=== PATIENT | female | born 1990 | race Caucasian/White ===

== ENCOUNTER 2020-05-21 11:10 | Emergency (ER) | payer SELFPAY ==
--- OUTSIDE RECORDS SUMMARY | 2020-05-21 12:52 | XMS REPORT | Encounter Summary ---
:1990 Author Reason for Visit Well woman exam Instructions 1. Gynecologic examination CT + NG DNA, PCR, cervical urinalysis, dipstick pap, LB + reflex to HR HPV if [facility] 2. Oral contraception Sprintec (28) 0.25 mg-35 m cg tablet 3. Generalized anxiety disorder citalopram 10 mg tablet 4. Bacterial disease screening wet [place], vaginal Discussion Note Pap, GC/CT done. Counseled regardin g prevention of STD's and discussed contraceptive options. Advised avoidance of tobacco, alcohol, and drugs . Encouraged good nutrition, regular exercise, and id eal body weight. Patient educational handouts: No information available. Plan of Care Reminders Provider Appointments Follow up Phu Arias MD 06/19/2020 11:00AM Lab [place], In-Thom se Results Vaginal 05/18/2020 CT + NG DNA, [facility], Cervical [facility]/18/[facility] Urinalysis, In-Ho use Results Dipstick 05/18/2020 Pap, LB + [facility] (Lab) Reflex to hr HPV If 05/18/2020 [facility] Referral None recorded. Procedures None recorded. Surgeries None recorded. Imaging None recorded. Medications Name Start Date citalopram 10 mg tablet Take 1 tablet every day by oral route. Sprintec (28) 0.25 mg-35 mcg tablet Take 1 tablet every day by oral route. Medications Administered None recorded. Vitals Height Weight BMI Blood Pressure 5 ft 4 in 178 lbs 30.6 kg/m2 127/78 mm[Hg] Results Lab Results Date Name Specimen Result Interpretation Description Value Range Status Address 05/18/2020 Urinalysis, Leukocytes Negative In-House Dipstick Results: For Internal U se Only, Do N ot Delete/adan ge Nitrite negative In-Thom se Results: F or Internal U se Only, Do N ot Delete/adan ge Urobilinogen .2 In- House Results: F or Internal U se Only, Do N ot Delete/adan ge Protein Negative In-Thom se Results: F or Internal U se Only, Do N ot Delete/adan ge Ph 7.0 In-House Results: F or Internal U se Only, Do N ot Delete/adan ge Blood Hemolyzed: In-Thom se Trace Results: F or Internal U se Only, Do N ot Delete/adan ge Specific 1.015 In-Hous e [place] Results: For Internal U se Only, Do N ot Delete/adan ge Ketone Negative In-Hous e Results: F or Internal U se Only, Do N ot Delete/adan ge Bilirubin Negative In-H ouse Results: F or Internal U se Only, Do N ot Delete/adan ge Glucose Negative In-Thom se Results: F or Internal U se Only, Do N ot Delete/adan ge Appearance Clear In-Ho use Results: F or Internal U se Only, Do N ot Delete/adan ge Color Yellow In-House Results: F or Internal U se Only, Do N ot Delete/adan ge [place], Clue Cells negative In-House Vaginal Results: For Internal U se Only, Do N ot Delete/adan ge Wbcs negative In-House Results: F or Internal U se Only, Do N ot Delete/adan ge Trichomonads negative I n-House Results: F or Internal U se Only, Do N ot Delete/adan ge Epithelial normal In-Ho use Cells Results: F or Internal U se Only, Do N ot Delete/adan ge Rbcs positive In-House Results: F or Internal U se Only, Do N ot Delete/adan ge Allergies Code Code System Name Reaction Severity Status Onset NKDA Problems Name Status Onset Date Source Vasovagal Attack Active 05/12/2017 Generalized Anxiety Disorder Active 06/09/2017 Screening Active 10/11/2017 Missed Period Active 08/13/2018 Urine Test Positive Active 08/13/2018 Candidiasis of Vagina Active 10/02/2018 Paresthesia of Upper Limb Active 11/30/2018 Proteinuria Active 01/08/2019 Acute Cystitis in , Antepartum Active 02/27/20 19 Breech Presentation Active 04/08/2019 Oral Contraception Active 05/18/2020 Procedures None recorded. Vaccine List None recorded. Social History Tobacco Smoking Status Former Smoker Past Encounters 05/18/2020 Gynecologic Examination; Oral Contracept ion; Generalized Anxiety Disorder; Bacterial Disease Screening Hammad Arias MD: [address] [place] [address] [address], [place] [address], Ph. [phone] History of Present Illness Note: Well woman visit. 30 y/o Ab2, s/p primary LTCS 04/11/19. She was breast feeding until recently. She took OCs initially but stopped due to increased bleeding and cramping on menses. She would like to resume OCs now. She also c/o increasing anxiety symptoms. Review of Systems [employer] ROS Reported By: Patient Constitutional: Constitutional: no fatigue, no fever, no significant weight gain, no significant weight loss Skin: Skin: no abnormal moles, no rashes Eyes: Eyes: no irritation, no visi on changes ENMT: ENMT: no hearing loss, no ea r pain, no nose/sinus problems, no sore throat, no snoring, no dry m outh, no mouth ulcers Respiratory: Respiratory: no dyspnea / sh ortness of breath, no cough, no sputum production, no hemoptysis, n o wheezing Cardiovascular: Cardiovascular: no chest shannan n, no palpitations, no orthopnea Gastrointestinal: Gastrointestinal: no heartbu rn, no dysphagia, no nausea, no vomiting, no abdominal pain, no bowel movement changes, no diarrhea, no constipation, n o rectal bleeding Genitourinary: Genitourinary: no hematuria, no abnormal bleeding, no flank pain, no trouble urinating, no inc ontinence, no rash, no lesion, no discharge, no vaginal odor, no vaginal itching Endocrine: Menstrual: no menstrual prob lems, irritability, tension/anxiety, depressed mood. Menopausal: no menopausal symptoms. Sexual: no sexual problems Musculoskeletal: Musculoskeletal: no muscle a ches, no muscle weakness, no arthralgias/joint pain, no b ack pain Neurological: Neurologic: no headaches, no dizziness, no LOC, no weakness, no numbness, no seizures Psychological: Psych: no depression, no alc oholism, no sleep disturbances; *anxiety* Physical Exam Annual [employer] Reported By: Patient Sheeter Helper: Sheeter Helper: present Constitutional: General Appearance: healthy- appearing, well-nourished, well-developed Psychiatric: Orientation: to time, to paxton ce, to person. Mood and Affect: active and alert, normal mood, norm al affect Skin: Appearance: no rashes, no le sions Neck: Neck: supple, trachea midlin e, no masses, FROM. Thyroid: no enlargement, no nodules, non -tender Lungs: Respiratory Effort: no inter costal retractions, no accessory muscle usage. Auscultation: clear t o auscultation, no wheezing, no rales/crackles, no rhonchi Cardiovascular: Auscultation: RRR, no murmur . Peripheral Vascular: no LLE edema, no RLE edema, no varicosities, no calf tenderness, no palpable cords, pedal pulses intact Abdomen: Auscultation/Inspection/Palp ation: soft, non-distended, no tenderness, no hepatomegaly, no splenomegaly, no masses. Hernia: none palpated Female Genitalia: Vulva: no masses, no atrophy , no lesions. Vagina: no tenderness, no erythema, no vesicle(s) or u lcers, no cystocele, no rectocele; *small amount of bloody disc harge present*. Cervix: grossly normal, no discharge, no cervical mo tion tenderness, sample taken for a Pap smear. Uterus: normal size, normal shape, midline, no uterine prolapse, mobile, non-tender . Bladder/Urethra: normal meatus, no urethral discharge, no ureth ral mass, bladder non distended. Adnexa/Parametria: no parame trial tenderness, no parametrial mass, no adnexal tenderness, no ov alexander mass Lymph Nodes: Palpation: non tender subman dibular nodes, non tender inguinal nodes Rectal Exam: Rectum: normal perianal skin , no hemorrhoids
--- OUTSIDE RECORDS SUMMARY | 2020-05-21 12:52 | XMS REPORT | Continuity of Care Document ---
:1990 Author Organization [facility] t Address [address] [place] [address] Care Team Providers Name Role Phone Unavailable Unavailable Unavailable Problems Condition Condition Condition Status Onset Resolution Last Treating Co mments Source Name Details Category Date Date Treatment Clinician Date Oral Oral Problem Active [facility] contracept Contracept 6-22 da ion ion 00:00: Medical 00 Group Breech Breech Problem Active [facility] presentati Presentati 5-13 da on on 00:00: Medical 00 Group Acute Acute Problem Active [facility] cystitis Cystitis 4-02 da in in 00:00: Medical , , 00 Gr oup antepartum Antepartum Proteinuri Proteinuri Problem Active [facility] a a 2-12 da 00:00: Medical Group Paresthesi Paresthesi Problem Active [facility] a of upper a of Upper 1-04 da limb Limb 00:00: Medical 00 Group Candidiasi Candidiasi Problem Active 2017-11 [facility] s of s of 1-06 da vagina Vagina 00:00: Medical 00 Group Missed Missed Problem Active [facility] period Period 9- da 00:00: Medical 00 Group Urine Urine Problem Active [facility] 9-17 da test Test 00:00: Medical positive Positive 00 Group Problem Active 2016-11 [facility] screening Screening 1-15 da 00:00: Medical 00 Group Generalize Generalize Problem Active [facility] d anxiety d Anxiety 7-14 da disorder Disorder 00:00: Medica l 00 Group Vasovagal Vasovagal Problem Active [facility] attack Attack 6-16 da 00:00: Medical 00 Group Allergies, Adverse Reactions, Alerts This patient has no known allergies or adverse reactions. Social History Smoking Status Start Date Stop Date Source Former Smoker [facility] Medications Ordered Filled Start Stop Current Ordering Indication Dosage Frequency Signature Comments Components Source Medication Medication Date Date Medication? Clinician (SIG) Name Name citalopram citalopram No 1 Q1D citalopram [facility] 10 mg 10 mg 10 mg da tablet Take tablet Take tablet Medical 1 tablet 1 tablet Take 1 Group every day every day tablet by oral by oral every day route. route. by oral route. Sprintec Sprintec No 1 Q1D Sprintec [facility] (28) 0.25 (28) 0.25 (28) 0.25 da mg-35 mcg mg-35 mcg mg-35 mcg Medical tablet Take tablet Take tablet Group 1 tablet 1 tablet Take 1 every day every day tablet by oral by oral every day route. route. by oral route. Vital Signs Vital Name Observation Time Observation Value Comments Source BP Diastolic 2020-05-18 00:00:00 78 mm[Hg] [facility] Height 2020-05-18 00:00:00 64 [in_i] [facility] BMI (Body Mass 2020-05-18 00:00:00 30.6 kg/m2 [facility] Medical Index) Group BP Systolic 2020-05-18 00:00:00 127 mm[Hg] [facility] Body Weight 2020-05-18 00:00:00 178 [lb_av] [facility] BP Diastolic 2019-05-02 00:00:00 82 mm[Hg] [facility] Height 2019-05-02 00:00:00 64 [in_i] [facility] BMI (Body Mass 2019-05-02 00:00:00 29.4 kg/m2 [facility] Medical Index) Group BP Systolic 2019-05-02 00:00:00 126 mm[Hg] [facility] Body Weight 2019-05-02 00:00:00 171 [lb_av] [facility] BP Diastolic 2019-04-08 00:00:00 82 mm[Hg] [facility] Height 2019-04-08 00:00:00 64 [in_i] [facility] BMI (Body Mass 2019-04-08 00:00:00 32.4 kg/m2 [facility] Medical Index) Group BP Systolic 2019-04-08 00:00:00 121 mm[Hg] [facility] Body Weight 2019-04-08 00:00:00 188.7 [lb_av] [facility] BP Diastolic 2019-03-29 00:00:00 86 mm[Hg] [facility] Height 2019-03-29 00:00:00 64 [in_i] [facility] BMI (Body Mass 2019-03-29 00:00:00 32.1 kg/m2 [facility] Medical Index) Group BP Systolic 2019-03-29 00:00:00 111 mm[Hg] [facility] Body Weight 2019-03-29 00:00:00 187 [lb_av] [facility] BP Diastolic 2019-03-08 00:00:00 74 mm[Hg] [facility] Height 2019-03-08 00:00:00 64 [in_i] [facility] BMI (Body Mass 2019-03-08 00:00:00 32.1 kg/m2 [facility] Medical Index) Group BP Systolic 2019-03-08 00:00:00 121 mm[Hg] [facility] Body Weight 2019-03-08 00:00:00 187 [lb_av] [facility] BP Diastolic 2019 00:00:00 76 mm[Hg] [facility] Height 2019 00:00:00 64 [in_i] [facility] BMI (Body Mass 2019 00:00:00 31.6 kg/m2 [facility] Medical Index) Group BP Systolic 2019 00:00:00 120 mm[Hg] [facility] Body Weight 2019 00:00:00 184.2 [lb_av] [facility] BP Diastolic 2019-01-25 00:00:00 73 mm[Hg] [facility] Height 2019-01-25 00:00:00 64 [in_i] [facility] BMI (Body Mass 2019-01-25 00:00:00 30.2 kg/m2 [facility] Medical Index) Group BP Systolic 2019-01-25 00:00:00 114 mm[Hg] [facility] Body Weight 2019-01-25 00:00:00 176 [lb_av] [facility] BP Diastolic 2019-01-08 00:00:00 70 mm[Hg] [facility] Height 2019-01-08 00:00:00 64 [in_i] [facility] BMI (Body Mass 2019-01-08 00:00:00 29.8 kg/m2 [facility] Medical Index) Group BP Systolic 2019-01-08 00:00:00 109 mm[Hg] [facility] Body Weight 2019-01-08 00:00:00 173.4 [facility] Diastolic 2018-11-30 00:00:00 61 mm[Hg] [facility] Height 2018-11-30 00:00:00 64 [in_i] [facility] BMI (Body Mass 2018-11-30 00:00:00 29.2 kg/m2 [facility] Medical Index) Group BP Systolic 2018-11-30 00:00:00 119 mm[Hg] [facility] Body Weight 2018-11-30 00:00:00 170 [facility] Procedures Procedure Date / Time Performing Clinician Source Performed US, obstetric, limited 2019-03-29 00:00:00 [facility] ULTRASOUND REPEAT 2019-01-25 00:00:00 [facility] ULTRASOUND, 2018-11-30 00:00:00 [facility] UTERUS REAL TIME WITH Group IMAGE DOC, AND MATERNAL EVAL PLUS DETAILED ANATOMIC EXAMINATION, TRANSABDOMINAL APPROACH; SINGLE OR FIRST GESTATION US, obstetric, limited 2018-11-02 00:00:00 [facility] Plan of Care Planned Activity Planned Date Details Comments Source Diagnostic Test 2020-05-18 wet [place], vaginal [facility] Medical Pending 00:00:00 [code = wet mount, Group vaginal] Diagnostic Test 2020-05-18 CT + NG DNA, PCR, [facility] Pending 00:00:00 cervical [code = Group CT + NG DNA, PCR, cervical] Diagnostic Test 2020-05-18 urinalysis, [facility] Pending 00:00:00 dipstick [code = Group urinalysis, dipstick] Diagnostic Test 2020-05-18 pap, LB + reflex [facility] Pending 00:00:00 to HR HPV if ASC-U Group [code = pap, LB + reflex to HR HPV if ASC-U] Future Appointment 2020-06-19 Jade Lovett medical clinic manager Medical 11:00:[address] [place] [phone] Encounters Start End Encounter Admission Attending Care Care Encounter Source Date/Time Date/Time Type Type Clinicians Facility Department ID 2020-05-18 2020-05-18 Hammad R[place] - [id number] [facility] 00:00:00 00:00:00 Discovery lilibeth Arias MD: [address] [place] [phone] , Ph. [phone] 2019-05-02 2019-05-02 Hammad R[place] - [id number] [facility] 00:00:00 00:00:00 Discovery lilibeth Arias MD: [address] [place] [phone] , Ph. [phone] 2019-04-08 2019-04-08 Hammad [place] - [id number] [facility] 00:00:00 00:00:00 Discovery lilibeth Arias MD: [address] [place] [phone] , Ph. [phone] 2019-03-29 2019-03-29 Hammad R[place] - [id number] [facility] 00:00:00 00:00:00 Discovery lilibeth Arias MD: [address] [place] [phone] , Ph. [phone] 2019-03-08 2019-03-08 Syeda [facility] [place] - [id number] [facility] 00:00:00 00:00:00 Dalila Marques MD: [address] [place] [phone] , Ph. [phone] 2019 2019 Michelle Santacruz MM [place] - [id number] 9 [facility] 00:00:00 00:00:00 Discovery lilibeth Covarrubias WHNP: [address] [place] [phone] , Ph. [phone] 2019-01-25 2019-01-25 Hammad [place] - [id number] [facility] 00:00:00 00:00:00 Discovery lilibeth Arias MD: [address] [place] [phone] , Ph. [phone] 2019-01-08 2019-01-08 Michelle Santacruz MM [place] - [id number] [facility] 00:00:00 00:00:00 Discovery lilibeth Covarrubias WHNP: [address] [place] [phone] , Ph. [phone] 2018-11-30 2018-11-30 Michelle Santacruz MM [place] - [id number] [facility] 00:00:00 00:00:00 Discovery Ji CovarrubiasNP: [address] [facility] [place] [address] , Ph. [phone] 2018-11-02 2018-11-02 Hammad R[place] - [id number] [facility] 00:00:00 00:00:00 Discovery lilibeth Arias MD: [address] [facility] [place] [address] , Ph. [phone] Results Test Description Test Time Test Comments Results Result Comments Source Urinalysis macro (dipstick) panel - Urine 2020-05-18 16:25:4 7 Test Item Value Reference Range Interpretation Comme nts Leukocytes (test code = Leukocytes) Negative Nitrite (test code = Nitrite) negative Urobilinogen (test code = Urobilinogen) .2 Protein (test code = Protein) Negative pH (test code = pH) 7.0 Blood (test code = Blood) Hemolyzed: Trace Specific Mchenry (test code = Specific Mchenry) 1.015 Ketone (test code = Ketone) Negative Bilirubin (test code = Bilirubin) Negative Glucose (test code = Glucose) Negative Appearance (test code = Appearance) Clear Color (test code = Color) Yellow [facility] panel - [id number] 09:59:00 Test Item Value Reference Range Interpretation Comments Leukocytes (test code = Leukocytes) Trace Nitrite (test code = Nitrite) negative Urobilinogen (test code = .2 Urobilinogen) Protein (test code = Protein) Negative pH (test code = pH) 6.0 Blood (test code = Blood) Large Specific Mchenry (test code = 1.015 Specific Mchenry) Ketone (test code = Ketone) Negative Bilirubin (test code = Bilirubin) Negative Glucose (test code = Glucose) Negative Appearance (test code = Appearance) Clear Color (test code = Color) Yellow [facility] Auto Differential panel - [id number] 00:00:00 Test Item Value Reference Range Interpretation Comments white blood count (test code = 9.1 K/uL 4.0-11.5 white blood count) red blood count (test code = red 3.69 M/uL 3.80-5.20 L blood count) Hemoglobin [Mass/volume] in Blood 12.0 g/dL 10.5-15.7 (test code = 718-7) hematocrit (test code = hematocrit) 34.2 % 34.0-50.0 Erythrocyte mean corpuscular volume 92.5 fL 78-98 [Entitic volume] (test code = 34997-4) Erythrocyte mean corpuscular 32.4 pg 26.2-33.4 hemoglobin [Entitic mass] (test code = 05812-5) mean corpuscular HGB conc (test 35.0 g/dL 31.5-36.2 code = mean corpuscular HGB conc) red cell distribution width (test 11.8 % 11.5-15.5 code = red cell distribution width) Platelets [#/volume] in Blood (test 180 K/uL 137-338 code = 22959-7) Platelet mean volume [Entitic 8.4 fL 8.4-11.8 volume] in Blood (test code = 76338-0) Neutrophils.band form/100 53.8 % 44.4-80.1 leukocytes in Blood (test code = 74382-6) Lymphocytes/100 leukocytes in Body 34.6 % 10.0-50.0 fluid (test code = 71885-5) Monocytes/100 leukocytes in Blood 6.7 % 3.6-12.04 by Automated count (test code = 5905-5) Eosinophils/100 leukocytes in Blood 4.3 % 0.0-5.41 by Automated count (test code = 713-8) Basophils/100 leukocytes in 0.7 % 0.0-0.79 Unspecified specimen (test code = 46140-5) [facility] and Indirect antibody screen panel - Blood 2019-04-11 00:00:00 Test Item Value Reference Range Interpretation Comments Rh [Type] in Blood (test code = 4+ 61015-2) ABO and Rh group panel - Blood O positive (test code = 49821-2) [facility] [Presence] in Serum by [id number] 00:00:00 Test Item Value Reference Range Interpretation Comments Reagin Ab [Presence] in Serum by nonreactive nonreactive RPR (test code = 40166-8) [facility] W Auto Differential panel - [id number] 00:00:00 Test Item Value Reference Range Interpretation Comments white blood count (test code = 11.4 K/uL 4.0-11.5 white blood count) red blood count (test code = red 3.45 M/uL 3.80-5.20 L blood count) Hemoglobin [Mass/volume] in Blood 10.9 g/dL 10.5-15.7 (test code = 718-7) hematocrit (test code = hematocrit) 32.0 % 34.0-50.0 L Erythrocyte mean corpuscular volume 92.9 fL 78-98 [Entitic volume] (test code = 22248-8) Erythrocyte mean corpuscular 31.7 pg 26.2-33.4 hemoglobin [Entitic mass] (test code = 63644-8) mean corpuscular HGB conc (test 34.2 g/dL 31.5-36.2 code = mean corpuscular HGB conc) red cell distribution width (test 12.0 % 11.5-15.5 code = red cell distribution width) Platelets [#/volume] in Blood (test 194 K/uL 137-338 code = 67210-2) Platelet mean volume [Entitic 10.0 fL 8.4-11.8 volume] in Blood (test code = 27163-6) Neutrophils.band form/100 72.8 % 44.4-80.1 leukocytes in Blood (test code = 81720-0) Lymphocytes/100 leukocytes in Body 19.8 % 10.0-50.0 fluid (test code = 78910-3) Monocytes/100 leukocytes in Blood 5.3 % 3.6-12.04 by Automated count (test code = 5905-5) Eosinophils/100 leukocytes in Blood 1.6 % 0.0-5.41 by Automated count (test code = 713-8) Basophils/100 leukocytes in 0.6 % 0.0-0.79 Unspecified specimen (test code = 67909-9) [facility] Center[facility]atitis [facility] virus surface Ag [Presence] in Serum 2019-04-11 00:00:00 Test Item Value Reference Range Interpretation Comments .hepatitis B surface antigen (test negative negative code = .hepatitis B surface antigen) [facility] macro (dipstick) panel - [id number] 11:23:18 Test Item Value Reference Range Interpretation Comments Leukocytes (test code = Small Leukocytes) Nitrite (test code = negative Nitrite) Urobilinogen (test code = .2 Urobilinogen) Protein (test code = Negative Protein) pH (test code = pH) 5.5 Blood (test code = Blood) Non-Hemolyzed: Trace Specific Mchenry (test 1.010 code = Specific Mchenry) Ketone (test code = Negative Ketone) Bilirubin (test code = Negative Bilirubin) Glucose (test code = Negative Glucose) Appearance (test code = Clear Appearance) Color (test code = Color) Yellow [facility] Center[facility] macro (dipstick) panel - [id number] 11:23:18 Test Item Value Reference Range Interpretation Comments Leukocytes (test code = Small Leukocytes) Nitrite (test code = negative Nitrite) Urobilinogen (test code = .2 Urobilinogen) Protein (test code = Negative Protein) pH (test code = pH) 5.5 Blood (test code = Blood) Non-Hemolyzed: Trace Specific Mchenry (test 1.010 code = Specific Mchenry) Ketone (test code = Negative Ketone) Bilirubin (test code = Negative Bilirubin) Glucose (test code = Negative Glucose) Appearance (test code = Clear Appearance) Color (test code = Color) Yellow [facility] Center[facility] macro (dipstick) panel - [id number] 09:41:23 Test Item Value Reference Range Interpretation Comments Leukocytes (test code = Large Leukocytes) Nitrite (test code = negative Nitrite) Urobilinogen (test code = .2 Urobilinogen) Protein (test code = Negative Protein) pH (test code = pH) 7.0 Blood (test code = Blood) Non-Hemolyzed: Trace Specific Mchenry (test 1.020 code = Specific Mchenry) Ketone (test code = Negative Ketone) Bilirubin (test code = Negative Bilirubin) Glucose (test code = Negative Glucose) Appearance (test code = Clear Appearance) Color (test code = Color) Yellow [facility] macro (dipstick) panel - [id number] 09:41:23 Test Item Value Reference Range Interpretation Comments Leukocytes (test code = Large Leukocytes) Nitrite (test code = negative Nitrite) Urobilinogen (test code = .2 Urobilinogen) Protein (test code = Negative Protein) pH (test code = pH) 7.0 Blood (test code = Blood) Non-Hemolyzed: Trace Specific Mchenry (test 1.020 code = Specific Mchenry) Ketone (test code = Negative Ketone) Bilirubin (test code = Negative Bilirubin) Glucose (test code = Negative Glucose) Appearance (test code = Clear Appearance) Color (test code = Color) [facility] [Presence] in Unspecified specimen by Organism specific [id number] 00:00:00 Test Item Value Reference Range Interpretation Comments group B streptococcus (gbs) by negative real-time PCR (test code = group B streptococcus (gbs) by real-time PCR) [facility] CenterChlamydia trachomatis+Neisseria gonorrhoeae DNA [Presence] in Unspecified specimen by Probe and target amplification method 2019-03-13 00:00:00 Test Item Value Reference Range Interpretation Comments chlamydia trachomatis by real-time negative PCR (reflex to azithromycin resistance by pyrosequencing) (test code = chlamydia trachomatis by real-time PCR (reflex to azithromycin resistance by pyrosequencing)) neisseria gonorrhoeae by real-time negative PCR (reflex to antibiotic resistance by molecular analysis) (test code = neisseria gonorrhoeae by real-time PCR (reflex to antibiotic resistance by molecular analysis)) [facility] macro (dipstick) panel - [id number] 10:32:00 Test Item Value Reference Range Interpretation Comments Leukocytes (test code = Leukocytes) Trace Nitrite (test code = Nitrite) negative Urobilinogen (test code = .2 Urobilinogen) Protein (test code = Protein) Negative pH (test code = pH) 7.0 Blood (test code = Blood) Negative Specific Mchenry (test code = 1.010 Specific Mchenry) Ketone (test code = Ketone) Negative Bilirubin (test code = Bilirubin) Negative Glucose (test code = Glucose) Negative Appearance (test code = Appearance) Clear Color (test code = Color) Yellow [facility] CenterUr[facility]ysis macro (dipstick) panel - [id number] 10:32:00 Test Item Value Reference Range Interpretation Comments Leukocytes (test code = Leukocytes) Trace Nitrite (test code = Nitrite) negative Urobilinogen (test code = .2 Urobilinogen) Protein (test code = Protein) Negative pH (test code = pH) 7.0 Blood (test code = Blood) Negative Specific Mchenry (test code = 1.010 Specific Mchenry) Ketone (test code = Ketone) Negative Bilirubin (test code = Bilirubin) Negative Glucose (test code = Glucose) Negative Appearance (test code = Appearance) Clear Color (test code = Color) Yellow [facility] CenterUr[facility]ysis macro (dipstick) panel - [id number] 09:23:00 Test Item Value Reference Range Interpretation Comments Leukocytes (test code = Trace Leukocytes) Nitrite (test code = negative Nitrite) Urobilinogen (test code = .2 Urobilinogen) Protein (test code = 30 Protein) pH (test code = pH) 7.0 Blood (test code = Blood) Hemolyzed: Trace Specific Mchenry (test code 1.030 = Specific Mchenry) Ketone (test code = Ketone) Negative Bilirubin (test code = Negative Bilirubin) Glucose (test code = Negative Glucose) Appearance (test code = Clear Appearance) Color (test code = Color) Yellow [facility] (dipstick) panel - [id number] 09:23:00 Test Item Value Reference Range Interpretation Comments Leukocytes (test code = Trace Leukocytes) Nitrite (test code = negative Nitrite) Urobilinogen (test code = .2 Urobilinogen) Protein (test code = 30 Protein) pH (test code = pH) 7.0 Blood (test code = Blood) Hemolyzed: Trace Specific Mchenry (test code 1.030 = Specific Mchenry) Ketone (test code = Ketone) Negative Bilirubin (test code = Negative Bilirubin) Glucose (test code = Negative Glucose) Appearance (test code = Clear Appearance) Color (test code = Color) Yellow [facility] GroupBacteria identified in Urine by [id number] 08:58:00Bacteria Ur CultAltarda Medical GroupGlucose [Mass/volume] in Serum or Plasma --1 hour post dose [id number] 14:01:00 Test Item Value Reference Range Interpretation Comments Results (test code = Results) 147 [facility] GroupGlucose [Mass/volume] in Serum or Plasma --1 hour post dose [id number] 14:01:00 Test Item Value Reference Range Interpretation Comments Results (test code = Results) 147 [facility] GroupUrinalysis macro (dipstick) panel - [id number] 09:42:39 Test Item Value Reference Range Interpretation Comments Leukocytes (test code = Small Leukocytes) Nitrite (test code = negative Nitrite) Urobilinogen (test code = .2 Urobilinogen) Protein (test code = Negative Protein) pH (test code = pH) 7.0 Blood (test code = Blood) Non-Hemolyzed: Trace Specific Mchenry (test 1.020 code = Specific Mchenry) Ketone (test code = Negative Ketone) Bilirubin (test code = Negative Bilirubin) Glucose (test code = Negative Glucose) Appearance (test code = Clear Appearance) Color (test code = Color) Yellow [facility] Center[facility]ysis macro (dipstick) panel - [id number] 09:42:39 Test Item Value Reference Range Interpretation Comments Leukocytes (test code = Small Leukocytes) Nitrite (test code = negative Nitrite) Urobilinogen (test code = .2 Urobilinogen) Protein (test code = Negative Protein) pH (test code = pH) 7.0 Blood (test code = Blood) Non-Hemolyzed: Trace Specific Mchenry (test 1.020 code = Specific Mchenry) Ketone (test code = Negative Ketone) Bilirubin (test code = Negative Bilirubin) Glucose (test code = Negative Glucose) Appearance (test code = Clear Appearance) Color (test code = Color) [facility] Differential panel - [id number] 09:40:00 Test Item Value Reference Range Interpretation Comments white blood count (test code = 9.1 K/uL 4.0-11.5 white blood count) red blood count (test code = red 3.98 M/uL 3.80-5.20 blood count) Hemoglobin [Mass/volume] in Blood 13.2 g/dL 10.5-15.7 (test code = 718-7) hematocrit (test code = hematocrit) 38.8 % 34.0-50.0 Erythrocyte mean corpuscular volume 97.5 fL 78-98 [Entitic volume] (test code = 77751-1) Erythrocyte mean corpuscular 33.1 pg 26.2-33.4 hemoglobin [Entitic mass] (test code = 09207-8) mean corpuscular HGB conc (test 34.0 g/dL 31.5-36.2 code = mean corpuscular HGB conc) red cell distribution width (test 11.9 % 11.5-15.5 code = red cell distribution width) Platelets [#/volume] in Blood (test 212 K/uL 137-338 code = 58991-9) Platelet mean volume [Entitic 8.1 fL 8.4-11.8 L volume] in Blood (test code = 94498-5) Neutrophils.band form/100 64.3 % 44.4-80.1 leukocytes in Blood (test code = 83674-6) Lymphocytes/100 leukocytes in Body 27.5 % 10.0-50.0 fluid (test code = 24108-7) Monocytes/100 leukocytes in Blood 4.2 % 3.6-12.04 by Automated count (test code = 5905-5) Eosinophils/100 leukocytes in Blood 3.4 % 0.0-5.41 by Automated count (test code = 713-8) Basophils/100 leukocytes in Blood 0.7 % 0.0-0.79 by Automated count (test code = 706-2) [facility] antibody screen [Presence] in Serum or Plasma 2019-01-25 09:40:00 Test Item Value Reference Range Interpretation Comments Blood group antibody screen negative [Presence] in Serum or Plasma (test code = 890-4) [facility] CenterRe[facility] Ab [Presence] in Serum by [id number] 09:40:00 Test Item Value Reference Range Interpretation Comments Reagin Ab [Presence] in Serum by nonreactive nonreactive RPR (test code = 63801-4) [facility] CenterHIV 1+2 Ab [Presence] in [id number] 09:40:00HIV P24 AgHIV-1/2 AbMataWashington [facility] GroupBacteria identified in Urine by Culture 2019-01-08 11:21:00 Test Item Value Reference Range Interpretation Comments Bacteria identified in no growth at 48 hrs. Urine by Culture (test code = 630-4) [facility] CenterUrinalysis macro (dipstick) panel - [id number] 09:20:42 Test Item Value Reference Range Interpretation Comments Leukocytes (test code = Leukocytes) Trace Nitrite (test code = Nitrite) negative Urobilinogen (test code = .2 Urobilinogen) Protein (test code = Protein) 30 pH (test code = pH) 6.0 Blood (test code = Blood) Small Specific Mchenry (test code = 1.025 Specific Mchenry) Ketone (test code = Ketone) Trace Bilirubin (test code = Bilirubin) Negative Glucose (test code = Glucose) Negative Appearance (test code = Appearance) Clear Color (test code = Color) [facility] - [id number] 09:20:42 Test Item Value Reference Range Interpretation Comments Leukocytes (test code = Leukocytes) Trace Nitrite (test code = Nitrite) negative Urobilinogen (test code = .2 Urobilinogen) Protein (test code = Protein) 30 pH (test code = pH) 6.0 Blood (test code = Blood) Small Specific Mchenry (test code = 1.025 Specific Mchenry) Ketone (test code = Ketone) Trace Bilirubin (test code = Bilirubin) Negative Glucose (test code = Glucose) Negative Appearance (test code = Appearance) Clear Color (test code = Color) Yellow [facility] - [id number] 10:02:59 Test Item Value Reference Range Interpretation Comments Leukocytes (test code = Trace Leukocytes) Nitrite (test code = negative Nitrite) Urobilinogen (test code = .2 Urobilinogen) Protein (test code = Negative Protein) pH (test code = pH) 7.0 Blood (test code = Blood) Non-Hemolyzed: Trace Specific Mchenry (test 1.020 code = Specific Mchenry) Ketone (test code = Negative Ketone) Bilirubin (test code = Negative Bilirubin) Glucose (test code = Negative Glucose) Appearance (test code = Clear Appearance) Color (test code = Color) [facility] - [id number] 09:28:13 Test Item Value Reference Range Interpretation Comments Leukocytes (test code = Negative Leukocytes) Nitrite (test code = negative Nitrite) Urobilinogen (test code = .2 Urobilinogen) Protein (test code = Negative Protein) pH (test code = pH) 7.0 Blood (test code = Blood) Hemolyzed: Trace Specific Mchenry (test code 1.015 = Specific Mchenry) Ketone (test code = Ketone) Negative Bilirubin (test code = Negative Bilirubin) Glucose (test code = Negative Glucose) Appearance (test code = Clear Appearance) Color (test code = Color) [facility]
--- NOTE | 2020-05-21 13:00 | ER ---
Nurse's Notes [facility] Name: Irma Garcia Age: 30 yrs Sex: Female : 1990 Arrival Date: 05/21/2020 Time: 11:16 Bed 25 Private MD: Diagnosis: Dentalgia;Periapical abscess without sinus Presentation: 05/21 11:27 Chief complaint: Patient states: Cold chill throughout body today. Cash near syncope ll1 today with dizziness. Reports anxiety and chest hurting since January. Coronavirus screen: Proceed with normal triage. Patient denies a cough. Patient denies shortness of breath or difficulty breathing. Patient denies measured and/or subjective temperature greater than 100.4F prior to today's visit. Patient denies travel on a cruise ship or to a country the [facility] currently lists as an affected area. Patient denies contact with known and/or suspected case of COVID-19. Ebola Screen: Patient denies travel to an Ebola-affected area in the 21 days before illness onset. Initial Sepsis Screen: Does the patient meet any 2 criteria? No. Patient's initial sepsis screen is negative. Does the patient have a suspected source of infection? No. Patient's initial sepsis screen is negative. Risk Assessment: Do you want to hurt yourself or someone else? Patient reports no desire to harm self or others. Onset of symptoms was May 21, 2020. 11:27 Method Of Arrival: Ambulatory [facility] 11:27 Acuity: LONNY 3 ll1 [employer]: 13:00 LMP 05/15/2020 ca1 Historical: - Allergies: 11:29 No Known Allergies; ll1 - PMHx: 11:29 Anxiety; ll1 - PSHx: 11:29 ; ll1 - Immunization history:: Flu vaccine is not up to date. - Social history:: Smoking status: Patient denies any tobacco usage or history of. Patient/guardian denies using alcohol, street drugs, tobacco products. Screenin:59 Abuse screen: Denies threats or abuse. Denies injuries from another. Nutritional ca1 screening: No deficits noted. Tuberculosis screening: No symptoms or risk factors identified. Fall Risk None identified. Assessment: 12:59 General: Appears in no apparent distress. comfortable, Behavior is calm, cooperative, ca1 appropriate for age. Pain: Complains of pain in mouth. Neuro: Level of Consciousness is awake, alert, obeys commands, Oriented to person, place, time, situation. Cardiovascular: Heart tones S1 S2 present Capillary refill < 3 seconds Patient's skin is warm and dry. Derm: Skin is intact, is healthy with good turgor, Skin is pink, warm \T\ dry. Musculoskeletal: Circulation, motion, and sensation intact. Capillary refill < 3 seconds. Vital Signs: 11:27 BP 146 / 98; Pulse 81; Resp 17; Temp 98.6; Pulse Ox 99% ; Pain 4/10; ll1 12:57 BP 123 / 77 RA (auto/reg); Pulse 71; Resp 18 S; Temp 97.6(O); Pulse Ox 99% on R/A; jp3 ED Course: 11:16 Patient arrived in ED. mr 11:29 Triage completed. ll1 11:30 Arm band placed on Patient notified of wait time. ll1 12:45 Call light in reach. Verbal reassurance given. jp3 12:51 Carleen Amaya, RN is Primary Nurse. ca1 12:57 Patient maintains SpO2 saturation greater than 95% on room air. jp3 12:58 Wenceslao Hayes PA is PHCP. jr8 12:58 Joseph Zepeda MD is Attending Physician. jr8 12:59 No provider procedures requiring assistance completed. Patient did not have IV access ca1 during this emergency room visit. Administered Medications: No medications were administered Outcome: 12:59 Discharge ordered by . jr8 13:03 Discharged to home ambulatory. ca1 13:03 Condition: stable 13:03 Discharge instructions given to patient, Instructed on discharge instructions, follow up and referral plans. medication usage, Demonstrated understanding of instructions, follow-up care, medications, Prescriptions given X 2. 13:03 Patient left the ED. ca1 Signatures: Imelda Gordon mr Wenceslao Hayes PA PA jrPerez Adams jp3 Carleen Amaya RN RN ca1 Esha Beatty RN RN ll1
[2020-05-21 13:09] VITALS: O2SAT 99
[2020-05-21 13:11] VITALS: BP 123/77; TEMP 97.6
--- NOTE | 2020-05-22 13:07 | EDPHYS ---
Physician Documentation [facility] Name: Irma Garcia Age: 30 yrs Sex: Female : 1990 Arrival Date: 05/21/2020 Time: 11:16 Bed 25 Private MD: ED Physician Joseph Zepeda HPI: 05/21 16:13 This 30 yrs old Female presents to ER via Ambulatory with complaints of jr8 Dental pain. 16:13 The patient presents with broken tooth/teeth, pain. The problem is located in the left jr8 jaw. Onset: The symptoms/episode began/occurred gradually, 2 day(s) ago. Duration: The symptoms are continuous. Modifying factors: The symptoms are alleviated by nothing, the symptoms are aggravated by air, chewing. Associated signs and symptoms: The patient has no apparent associated signs or symptoms. Severity of symptoms: At their worst the symptoms were mild, in the emergency department the symptoms are unchanged. The patient has not experienced similar symptoms in the past. The patient has not recently seen a physician. IT INTERN: 13:00 LMP 05/15/2020 ca1 Historical: - Allergies: 11:29 No Known Allergies; ll1 - PMHx: 11:29 Anxiety; ll1 - PSHx: 11:29 ; ll1 - Immunization history:: Flu vaccine is not up to date. - Social history:: Smoking status: Patient denies any tobacco usage or history of. Patient/guardian denies using alcohol, street drugs, tobacco products. ROS: 16:13 Eyes: Negative for injury, pain, redness, and discharge, Neck: Negative for injury, jr8 pain, and swelling, Cardiovascular: Negative for chest pain, palpitations, and edema, Respiratory: Negative for shortness of breath, cough, wheezing, and pleuritic chest pain, Abdomen/GI: Negative for abdominal pain, nausea, vomiting, diarrhea, and constipation, Back: Negative for injury and pain, MS/Extremity: Negative for injury and deformity, Skin: Negative for injury, rash, and discoloration, Neuro: Negative for headache, weakness, numbness, tingling, and seizure. 16:13 ENT: Positive for dental pain. Exam: 16:13 Eyes: Pupils equal round and reactive to light, extra-ocular motions intact. Lids and jr8 lashes normal. Conjunctiva and sclera are non-icteric and not injected. Cornea within normal limits. Periorbital areas with no swelling, redness, or edema. Neck: Trachea midline, no thyromegaly or masses palpated, and no cervical lymphadenopathy. Supple, full range of motion without nuchal rigidity, or vertebral point tenderness. No Meningismus. Cardiovascular: Regular rate and rhythm with a normal S1 and S2. No gallops, murmurs, or rubs. Normal PMI, no JVD. No pulse deficits. Respiratory: Lungs have equal breath sounds bilaterally, clear to auscultation and percussion. No rales, rhonchi or wheezes noted. No increased work of breathing, no retractions or nasal flaring. Abdomen/GI: Soft, non-tender, with normal bowel sounds. No distension or tympany. No guarding or rebound. No evidence of tenderness throughout. Back: No spinal tenderness. No costovertebral tenderness. Full range of motion. Skin: Warm, dry with normal turgor. Normal color with no rashes, no lesions, and no evidence of cellulitis. MS/ Extremity: Pulses equal, no cyanosis. Neurovascular intact. Full, normal range of motion. Neuro: Awake and alert, GCS 15, oriented to person, place, time, and situation. Cranial nerves II-XII grossly intact. Motor strength 5/5 in all extremities. Sensory grossly intact. Cerebellar exam normal. Normal gait. 16:13 ENT: External ear(s): are unremarkable, Ear canal(s): are normal, clear, TM's: are normal, Nose: External nose: no obvious acute abnormality, Nasal septum: is midline, Nasal mucosa: moist, Turbinates: are normal, Mouth: Lips: moist, Oral mucosa: pink and intact, moist, Gums: pink, Tongue: is moist, Posterior pharynx: Airway: patent, Tonsils: are normal in appearance, Uvula: midline, Dental exam: fractured teeth are noted, specifically the lower left first molar (#19), pain, that is moderate, specifically in the lower left first molar (#19). Vital Signs: 11:27 BP 146 / 98; Pulse 81; Resp 17; Temp 98.6; Pulse Ox 99% ; Pain 4/10; ll1 12:57 BP 123 / 77 RA (auto/reg); Pulse 71; Resp 18 S; Temp 97.6(O); Pulse Ox 99% on R/A; jp3 MDM: 12:58 Patient medically screened. jr8 16:13 Data reviewed: vital signs, nurses notes, and as a result, I will discharge patient. jr8 Data interpreted: Pulse oximetry: on room air is 99 %. Interpretation: normal. Counseling: I had a detailed discussion with the patient and/or guardian regarding: the historical points, exam findings, and any diagnostic results supporting the discharge/admit diagnosis, the need for outpatient follow up, a dentist, to return to the emergency department if symptoms worsen or persist or if there are any questions or concerns that arise at home. Administered Medications: No medications were administered Disposition: 19:38 Co-signature as Attending Physician, Joseph Zepeda MD. 7 Disposition: 05/21/20 12:59 Discharged to Home. Impression: Dentalgia, Periapical abscess without sinus. - Condition is Stable. - Discharge Instructions: Dental Abscess, Dental Pain, Root Canal. - Prescriptions for Amoxicillin 875 mg Oral Tablet - take 1 tablet by ORAL route every 12 hours for 10 days; 20 tablet. Ibuprofen 800 mg Oral Tablet - take 1 tablet by ORAL route every 12 hours As needed take with food; 20 tablet. - Medication Reconciliation Form, Thank You Letter, Antibiotic Education, Prescription Opioid Use form. - Follow up: Private Physician; When: 5 - 6 days; Reason: Recheck today's complaints, Continuance of care, Re-evaluation by your physician. - Problem is new. - Symptoms have improved. Signatures: Wenceslao Hayes PA PA jr8 Carleen Amaya RN RN ca1 Esha Beatty RN RN ll1 Joseph Zepeda MD MD 7 Corrections: (The following items were deleted from the chart) 13:03 12:59 05/21/2020 12:59 Discharged to Home. Impression: Dentalgia; Periapical abscess ca1 without sinus. Condition is Stable. Forms are Medication Reconciliation Form, Thank You Letter, Antibiotic Education, Prescription Opioid Use. Follow up: Private Physician; When: 5 - 6 days; Reason: Recheck today's complaints, Continuance of care, Re-evaluation by your physician. Problem is new. Symptoms have improved. jr8
== END 2020-05-21 13:03 | disposition home or self-care (01) ==
LOC: ER 11:10
DX: K04.7 Periapical abscess without sinus (principal)
CPT/HCPCS: 99284

== ENCOUNTER 2020-05-21 20:11 | Emergency (ER) | payer SELFPAY ==
--- OUTSIDE RECORDS SUMMARY | 2020-05-21 20:15 | XMS REPORT | Continuity of Care Document ---
:1990 Author Organization [facility] t Address [address] [place] [address] Care Team Providers Name Role Phone Unavailable [...] Missed Missed Problem Active [facility] period Period 9-17 da 00:00: Medical 00 Group Urine Urine Problem Active [facility] 917 da test Test 00:00: Medical positive Positive [...] Start Date Stop Date Source Former Smoker [facility] Medications Ordered Filled Start Stop [...] BMI (Body Mass 2020-05-18 00:00:00 30.6 kg/m2 [facility] Medical Index) Group BP Systolic 2020-05-18 00:00:00 127 mm[Hg] [facility] Body Weight 2020-05-18 00:00:00 178 [lb_av] [facility] BP Diastolic 2019-05-02 00:00:00 82 mm[Hg] [facility] Height 2019-05-02 00:00:00 64 [in_i] [facility] BMI (Body Mass 2019-05-02 00:00:00 29.4 kg/m2 [facility] Medical Index) Group BP Systolic 2019-05-02 00:00:00 126 mm[Hg] [facility] Body Weight 2019-05-02 00:00:00 171 [lb_av] [facility] BP Diastolic 2019-04-08 00:00:00 82 mm[Hg] [facility] Height 2019-04-08 00:00:00 64 [in_i] [facility] BMI (Body Mass 2019-04-08 00:00:00 32.4 kg/m2 [facility] Medical Index) Group BP Systolic 2019-04-08 00:00:00 121 mm[Hg] [facility] Body Weight 2019-04-08 00:00:00 188.7 [lb_av] [facility] BP Diastolic 2019-03-29 00:00:00 86 mm[Hg] [facility] Height 2019-03-29 00:00:00 64 [in_i] [facility] BMI (Body Mass 2019-03-29 00:00:00 32.1 kg/m2 [facility] Medical Index) Group BP Systolic 2019-03-29 00:00:00 111 mm[Hg] [facility] Body Weight 2019-03-29 00:00:00 187 [lb_av] [facility] BP Diastolic 2019-03-08 00:00:00 74 mm[Hg] [facility] Height 2019-03-08 00:00:00 64 [in_i] [facility] BMI (Body Mass 2019-03-08 00:00:00 32.1 kg/m2 [facility] Medical Index) Group BP Systolic 2019-03-08 00:00:00 121 mm[Hg] [facility] Body Weight 2019-03-08 00:00:00 187 [lb_av] [facility] BP Diastolic 2019 00:00:00 76 mm[Hg] [facility] Height 2019 00:00:00 64 [in_i] [facility] BMI (Body Mass 2019 00:00:00 31.6 kg/m2 [facility] Medical Index) Group BP Systolic 2019 00:00:00 120 mm[Hg] [facility] Body Weight 2019 00:00:00 184.2 [lb_av] [facility] BP Diastolic 2019-01-25 00:00:00 73 mm[Hg] [facility] Height 2019-01-25 00:00:00 64 [in_i] [facility] BMI (Body Mass 2019-01-25 00:00:00 30.2 [facility] BP Systolic 2019-01-25 00:00:00 114 mm[Hg] [facility] Body Weight 2019-01-25 00:00:00 176 [lb_av] [facility] BP Diastolic 2019-01-08 00:00:00 70 mm[Hg] [facility] Height 2019-01-08 00:00:00 64 [in_i] [facility] BMI (Body Mass 2019-01-08 00:00:00 29.8 kg/m2 [facility] Medical Index) Group BP Systolic 2019-01-08 00:00:00 109 mm[Hg] [facility] Body Weight 2019-01-08 00:00:00 173.4 [lb_av] [facility] BP Diastolic 2018-11-30 00:00:00 61 mm[Hg] [facility] Height 2018-11-30 00:00:00 64 [in_i] [facility] BMI (Body Mass 2018-11-30 00:00:00 29.2 kg/m2 [facility] Medical Index) Group BP Systolic 2018-11-30 00:00:00 119 mm[Hg] [facility] Body Weight 2018-11-30 00:00:00 170 [facility] Procedures Procedure Date / Time Performing Clinician Source Performed US, obstetric, limited 2019-03-29 00:00:00 [facility] Group ULTRASOUND REPEAT 2019-01-25 00:00:00 [place] [facility] ULTRASOUND, 2018-11-30 00:00:00 [facility] UTERUS REAL TIME WITH Group IMAGE DOC, AND MATERNAL EVAL PLUS DETAILED ANATOMIC EXAMINATION, TRANSABDOMINAL APPROACH; SINGLE OR FIRST GESTATION US, obstetric, limited 2018-11-02 00:00:00 [facility] Plan of Care Planned Activity Planned Date Details Comments Source Diagnostic Test 2020-05-18 [place], vaginal [facility] Pending 00:00:00 [code = [place], Group vaginal] Diagnostic Test 2020-05-18 CT + NG DNA, PCR, [facility] Pending 00:00:00 cervical [code = Group CT + NG DNA, PCR, cervical] Diagnostic Test 2020-05-18 urinalysis, [place] [facility] Pending 00:00:00 dipstick [code = Group urinalysis, dipstick] Diagnostic Test 2020-05-18 pap, LB + reflex [facility] Pending 00:00:00 to HR HPV if ASC-U Group [code = pap, LB + reflex to HR HPV if ASC-U] Future Appointment 2020-06-19 [facility] 11:00:[address] [place] [phone] Encounters Start End Encounter Admission Attending Care Care Encounter Source Date/Time Date/Time Type Type Clinicians Facility Department ID 2020-05-18 2020-05-18 Hammad R[place]ALL [place] - [id number] [facility] 00:00:00 00:00:00 [facility] lilibeth Chambers MD: [address] [place] [phone] , Ph. [phone] 2019-05-02 2019-05-02 Hammad R[place]ALL [place] - [id number] [facility] 00:00:00 00:00:00 Discovery lilibeth Chambers MD: [address] [place] [phone] , Ph. [phone] 2019-04-08 2019-04-08 Hammad R[place]ALL [place] - [id number] [facility] 00:00:00 00:00:00 Discovery lilibeth Chambers MD: [address] [place] [phone] , Ph. [phone] 2019-03-29 2019-03-29 Hammad R[place]ALL [place] - [id number] [facility] 00:00:00 00:00:00 Discovery lilibeth Chambers MD: [address] [place] [phone] , Ph. [phone] 2019-03-08 2019-03-08 Syeda FELIXG [place] - [id number] M [facility] 00:00:00 00:00:00 Dalila Marques MD: [address] [place] [phone] , Ph. [phone] 2019 2019 Michelle Santacruz MM [place] - [id number] [facility] 00:00:00 00:00:00 Discovery lilibeth Covarrubias WHNP: [address] [place] [phone] , Ph. [phone] 2019-01-25 2019-01-25 Hammad FELIX [place] - [id number] [facility] 00:00:00 00:00:00 Discovery lilibeth Chambers MD: [address] [place] [phone] , Ph. [phone] 2019-01-08 2019-01-08 Michelle Santacruz MM [place] - [id number] [facility] 00:00:00 00:00:00 Discovery lilibeth Covarrubias WHNP: [address] [place] [phone] , Ph. [phone] 2018-11-30 2018-11-30 Michelle Santacruz MM [place] - [id number] [facility] 00:00:00 00:00:00 Discovery lilibeth Covarrubias WHNP: [address] [facility] [place] [address] , Ph. [phone] 2018-11-02 2018-11-02 Hammad FELIX [place] - [id number] [facility] 00:00:00 00:00:00 Discovery lilibeth Chambers MD: [address] [facility] [place] [address] , Ph. [phone] Results Test Description Test Time Test Comments [...] (test code = Blood) Hemolyzed: Trace Specific [place] (test code = Specific [place]) 1.015 Ketone (test code = Ketone) Negative Bilirubin (test code = Bilirubin) Negative Glucose (test code = Glucose) Negative Appearance (test code = Appearance) Clear Color (test code = Color) Yellow [facility] (dipstick) panel - [id number] 09:59:00 Test Item Value Reference Range Interpretation Comments Leukocytes (test code = Leukocytes) Trace Nitrite (test code = Nitrite) negative Urobilinogen (test code = .2 Urobilinogen) Protein (test code = Protein) Negative pH (test code = pH) 6.0 Blood (test code = Blood) Large Specific [place] (test code = 1.015 Specific [place]) Ketone (test code = Ketone) Negative Bilirubin (test code = Bilirubin) Negative Glucose (test code = Glucose) Negative Appearance (test code = Appearance) Clear Color (test code = Color) Yellow [facility]CBC W Auto Differential panel - [id number] 00:00:00 Test Item Value Reference Range Interpretation [...] fL 78-98 [Entitic volume] (test code = 84132-4) Erythrocyte mean corpuscular 32.4 pg 26.2-33.4 hemoglobin [Entitic mass] (test code = 18559-9) mean corpuscular HGB conc (test 35.0 g/dL 31.5-36.2 code = mean corpuscular HGB conc) red cell distribution width (test 11.8 % 11.5-15.5 code = red cell distribution width) Platelets [#/volume] in Blood (test 180 K/uL 137-338 code = 54222-2) Platelet mean volume [Entitic 8.4 fL 8.4-11.8 volume] in Blood (test code = 41304-4) Neutrophils.band form/100 53.8 % 44.4-80.1 leukocytes in Blood (test code = 12234-0) Lymphocytes/100 leukocytes in Body 34.6 % 10.0-50.0 fluid (test code = 57218-4) Monocytes/100 leukocytes in Blood 6.7 % 3.6-12.04 by Automated count (test code = 5905-5) Eosinophils/100 leukocytes in Blood 4.3 % 0.0-5.41 by Automated count (test code = 713-8) Basophils/100 leukocytes in 0.7 % 0.0-0.79 Unspecified specimen (test code = 32223-3) [facility] and Indirect antibody screen panel - Blood 2019-04-11 00:00:00 Test Item Value Reference Range Interpretation Comments Rh [Type] in Blood (test code = 4+ 85509-9) ABO and Rh group panel - Blood O positive (test code = 64512-3) [facility] [Presence] in Serum by [id number] 00:00:00 Test Item Value Reference Range Interpretation Comments Reagin Ab [Presence] in Serum by nonreactive nonreactive RPR (test code = 45018-8) [facility] CenterCB W Auto Differential panel - [id number] 00:00:00 Test Item Value Reference Range Interpretation [...] fL 78-98 [Entitic volume] (test code = 10360-2) Erythrocyte mean corpuscular 31.7 pg 26.2-33.4 hemoglobin [Entitic mass] (test code = 12314-4) mean corpuscular HGB conc (test 34.2 g/dL 31.5-36.2 code = mean corpuscular HGB conc) red cell distribution width (test 12.0 % 11.5-15.5 code = red cell distribution width) Platelets [#/volume] in Blood (test 194 K/uL 137-338 code = 50651-0) Platelet mean volume [Entitic 10.0 fL 8.4-11.8 volume] in Blood (test code = 46037-5) Neutrophils.band form/100 72.8 % 44.4-80.1 leukocytes in Blood (test code = 00997-3) Lymphocytes/100 leukocytes in Body 19.8 % 10.0-50.0 fluid (test code = 44144-5) Monocytes/100 leukocytes in Blood 5.3 % 3.6-12.04 by Automated count (test code = 5905-5) Eosinophils/100 leukocytes in Blood 1.6 % 0.0-5.41 by Automated count (test code = 713-8) Basophils/100 leukocytes in 0.6 % 0.0-0.79 Unspecified specimen (test code = 67671-1) [facility] Center[facility]atitis B virus surface Ag [Presence] in Serum 2019-04-11 00:00:00 Test Item Value Reference Range Interpretation Comments .hepatitis B surface antigen (test negative negative code = .hepatitis B surface antigen) [facility] Center[facility] macro (dipstick) panel - [id number] 11:23:18 Test Item Value Reference Range Interpretation Comments Leukocytes (test code = Small Leukocytes) Nitrite (test code = negative Nitrite) Urobilinogen (test code = .2 Urobilinogen) Protein (test code = Negative Protein) pH (test code = pH) 5.5 Blood (test code = Blood) Non-Hemolyzed: Trace Specific [place] (test 1.010 code = Specific [place]) Ketone (test code = Negative Ketone) Bilirubin (test code = Negative Bilirubin) Glucose (test code = Negative Glucose) Appearance (test code = Clear Appearance) Color (test code = Color) Yellow [facility] CenterUr[facility]ysis macro (dipstick) panel - [id number] 11:23:18 Test Item Value Reference Range Interpretation Comments Leukocytes (test code = Small Leukocytes) Nitrite (test code = negative Nitrite) Urobilinogen (test code = .2 Urobilinogen) Protein (test code = Negative Protein) pH (test code = pH) 5.5 Blood (test code = Blood) Non-Hemolyzed: Trace Specific [place] (test 1.010 code = Specific [place]) Ketone (test code = Negative Ketone) Bilirubin (test code = Negative Bilirubin) Glucose (test code = Negative Glucose) Appearance (test code = Clear Appearance) Color (test code = Color) Yellow [facility] Center[facility] macro (dipstick) panel - [id number] 09:41:23 Test Item Value Reference Range Interpretation Comments Leukocytes (test code = Large Leukocytes) Nitrite (test code = negative Nitrite) Urobilinogen (test code = .2 Urobilinogen) Protein (test code = Negative Protein) pH (test code = pH) 7.0 Blood (test code = Blood) Non-Hemolyzed: Trace Specific [place] (test 1.020 code = Specific [place]) Ketone (test code = Negative Ketone) Bilirubin (test code = Negative Bilirubin) Glucose (test code = Negative Glucose) Appearance (test code = Clear Appearance) Color (test code = Color) [facility] panel - [id number] 09:41:23 Test Item Value Reference Range Interpretation Comments Leukocytes (test code = Large Leukocytes) Nitrite (test code = negative Nitrite) Urobilinogen (test code = .2 Urobilinogen) Protein (test code = Negative Protein) pH (test code = pH) 7.0 Blood (test code = Blood) Non-Hemolyzed: Trace Specific [place] (test 1.020 code = Specific [place]) Ketone (test code = Negative Ketone) Bilirubin (test code = Negative Bilirubin) Glucose (test code = Negative Glucose) Appearance (test code = Clear Appearance) Color (test code = Color) [facility] [Presence] in Unspecified specimen by Organism specific [id number] 00:00:00 Test Item Value Reference Range Interpretation Comments group B streptococcus (gbs) by negative real-time PCR (test code = group B streptococcus (gbs) by real-time PCR) [facility] CenterChlamydia trachomatis+Neisseria gonorrhoeae DNA [Presence] in Unspecified [...] (reflex to antibiotic resistance by molecular analysis)) [facility] CenterUrinalysis macro (dipstick) panel - [id number] 10:32:00 Test Item Value Reference Range Interpretation Comments Leukocytes (test code = Leukocytes) Trace Nitrite (test code = Nitrite) negative Urobilinogen (test code = .2 Urobilinogen) Protein (test code = Protein) Negative pH (test code = pH) 7.0 Blood (test code = Blood) Negative Specific [place] (test code = 1.010 Specific [place]) Ketone (test code = Ketone) Negative Bilirubin (test code = Bilirubin) Negative Glucose (test code = Glucose) Negative Appearance (test code = Appearance) Clear Color (test code = Color) Yellow [facility] CenterUrinalysis macro (dipstick) panel - [id number] 10:32:00 Test Item Value Reference Range Interpretation Comments Leukocytes (test code = Leukocytes) Trace Nitrite (test code = Nitrite) negative Urobilinogen (test code = .2 Urobilinogen) Protein (test code = Protein) Negative pH (test code = pH) 7.0 Blood (test code = Blood) Negative Specific [place] (test code = 1.010 Specific [place]) Ketone (test code = Ketone) Negative Bilirubin (test code = Bilirubin) Negative Glucose (test code = Glucose) Negative Appearance (test code = Appearance) Clear Color (test code = Color) Yellow [facility] CenterUrinalysis macro (dipstick) panel - [id number] 09:23:00 Test Item Value Reference Range Interpretation Comments Leukocytes (test code = Trace Leukocytes) Nitrite (test code = negative Nitrite) Urobilinogen (test code = .2 Urobilinogen) Protein (test code = 30 Protein) pH (test code = pH) 7.0 Blood (test code = Blood) Hemolyzed: Trace Specific [place] (test code 1.030 = Specific [place]) Ketone (test code = Ketone) Negative Bilirubin (test code = Negative Bilirubin) Glucose (test code = Negative Glucose) Appearance (test code = Clear Appearance) Color (test code = Color) Yellow [facility] macro (dipstick) panel - [id number] 09:23:00 Test Item Value Reference Range Interpretation Comments Leukocytes (test code = Trace Leukocytes) Nitrite (test code = negative Nitrite) Urobilinogen (test code = .2 Urobilinogen) Protein (test code = 30 Protein) pH (test code = pH) 7.0 Blood (test code = Blood) Hemolyzed: Trace Specific [place] (test code 1.030 = Specific [place]) Ketone (test code = Ketone) Negative Bilirubin (test code = Negative Bilirubin) Glucose (test code = Negative Glucose) Appearance (test code = Clear Appearance) Color (test code = Color) Yellow [facility] GroupBacteria identified in Urine by [id number] 08:58:00Bacteria Ur CultLaredo Medical Centera Medical GroupGlucose [Mass/volume] in Serum or Plasma --1 hour post dose [id number] 14:01:00 Test Item Value Reference Range Interpretation Comments Results (test code = Results) 147 [facility] GroupGlucose [Mass/volume] in Serum or Plasma --1 hour post dose [id number] 14:01:00 Test Item Value Reference Range Interpretation Comments Results (test code = Results) 147 [facility] GroupUrinalysis macro (dipstick) panel - [id number] 09:42:39 Test Item Value Reference Range Interpretation Comments Leukocytes (test code = Small Leukocytes) Nitrite (test code = negative Nitrite) Urobilinogen (test code = .2 Urobilinogen) Protein (test code = Negative Protein) pH (test code = pH) 7.0 Blood (test code = Blood) Non-Hemolyzed: Trace Specific [place] (test 1.020 code = Specific [place]) Ketone (test code = Negative Ketone) Bilirubin (test code = Negative Bilirubin) Glucose (test code = Negative Glucose) Appearance (test code = Clear Appearance) Color (test code = Color) Yellow [facility] CenterUrinalysis macro (dipstick) panel - [id number] 09:42:39 Test Item Value Reference Range Interpretation Comments Leukocytes (test code = Small Leukocytes) Nitrite (test code = negative Nitrite) Urobilinogen (test code = .2 Urobilinogen) Protein (test code = Negative Protein) pH (test code = pH) 7.0 Blood (test code = Blood) Non-Hemolyzed: Trace Specific [place] (test 1.020 code = Specific [place]) Ketone (test code = Negative Ketone) Bilirubin (test code = Negative Bilirubin) Glucose (test code = Negative Glucose) Appearance (test code = Clear Appearance) Color (test code = Color) [facility] Auto Differential panel - [id number] 09:40:00 Test Item Value Reference Range Interpretation Comments white blood count (test code = 9.1 K/uL 4.0-11.5 white blood count) red blood count (test code = red 3.98 M/uL 3.80-5.20 blood count) Hemoglobin [Mass/volume] in Blood 13.2 g/dL 10.5-15.7 (test code = 718-7) hematocrit (test code = hematocrit) 38.8 % 34.0-50.0 Erythrocyte mean corpuscular volume 97.5 fL 78-98 [Entitic volume] (test code = 17073-0) Erythrocyte mean corpuscular 33.1 pg 26.2-33.4 hemoglobin [Entitic mass] (test code = 40828-0) mean corpuscular HGB conc (test 34.0 g/dL 31.5-36.2 code = mean corpuscular HGB conc) red cell distribution width (test 11.9 % 11.5-15.5 code = red cell distribution width) Platelets [#/volume] in Blood (test 212 K/uL 137-338 code = 16145-9) Platelet mean volume [Entitic 8.1 fL 8.4-11.8 L volume] in Blood (test code = 05596-0) Neutrophils.band form/100 64.3 % 44.4-80.1 leukocytes in Blood (test code = 85858-3) Lymphocytes/100 leukocytes in Body 27.5 % 10.0-50.0 fluid (test code = 41155-8) Monocytes/100 leukocytes in Blood 4.2 % 3.6-12.04 by Automated count (test code = 5905-5) Eosinophils/100 leukocytes in Blood 3.4 % 0.0-5.41 by Automated count (test code = 713-8) Basophils/100 leukocytes in Blood 0.7 % 0.0-0.79 by Automated count (test code = 706-2) [facility] antibody screen [Presence] in Serum or Plasma 2019-01-25 09:40:00 Test Item Value Reference Range Interpretation Comments Blood group antibody screen negative [Presence] in Serum or Plasma (test code = 890-4) [facility] CenterReagin Ab [Presence] in Serum by [id number] 09:40:00 Test Item Value Reference Range Interpretation Comments Reagin Ab [Presence] in Serum by nonreactive nonreactive RPR (test code = 88346-1) [facility] CenterHIV 1+2 Ab [Presence] in [id number] 09:40:00HIV P24 AgHIV-1/2 AbMataGr[facility] GroupBacteria identified in Urine by Culture 2019-01-08 11:21:00 Test Item Value Reference Range Interpretation Comments Bacteria identified in no growth at 48 hrs. Urine by Culture (test code = 630-4) [facility] CenterUrinalysis macro (dipstick) panel - [id number] 09:20:42 Test Item Value Reference Range Interpretation Comments Leukocytes (test code = Leukocytes) Trace Nitrite (test code = Nitrite) negative Urobilinogen (test code = .2 Urobilinogen) Protein (test code = Protein) 30 pH (test code = pH) 6.0 Blood (test code = Blood) Small Specific [place] (test code = 1.025 Specific [place]) Ketone (test code = Ketone) Trace Bilirubin (test code = Bilirubin) Negative Glucose (test code = Glucose) Negative Appearance (test code = Appearance) Clear Color (test code = Color) Yellow [facility] CenterUrinalysis macro (dipstick) panel - [id number] 09:20:42 Test Item Value Reference Range Interpretation Comments Leukocytes (test code = Leukocytes) Trace Nitrite (test code = Nitrite) negative Urobilinogen (test code = .2 Urobilinogen) Protein (test code = Protein) 30 pH (test code = pH) 6.0 Blood (test code = Blood) Small Specific [place] (test code = 1.025 Specific [place]) Ketone (test code = Ketone) Trace Bilirubin (test code = Bilirubin) Negative Glucose (test code = Glucose) Negative Appearance (test code = Appearance) Clear Color (test code = Color) Yellow [facility] CenterUrinalysis macro (dipstick) panel - [id number] 10:02:59 Test Item Value Reference Range Interpretation Comments Leukocytes (test code = Trace Leukocytes) Nitrite (test code = negative Nitrite) Urobilinogen (test code = .2 Urobilinogen) Protein (test code = Negative Protein) pH (test code = pH) 7.0 Blood (test code = Blood) Non-Hemolyzed: Trace Specific [place] (test 1.020 code = Specific [place]) Ketone (test code = Negative Ketone) Bilirubin (test code = Negative Bilirubin) Glucose (test code = Negative Glucose) Appearance (test code = Clear Appearance) Color (test code = Color) [facility] (dipstick) panel - [id number] 09:28:13 Test Item Value Reference Range Interpretation Comments Leukocytes (test code = Negative Leukocytes) Nitrite (test code = negative Nitrite) Urobilinogen (test code = .2 Urobilinogen) Protein (test code = Negative Protein) pH (test code = pH) 7.0 Blood (test code = Blood) Hemolyzed: Trace Specific [place] (test code 1.015 = Specific [place]) Ketone (test code = Ketone) Negative Bilirubin (test code = Negative Bilirubin) Glucose (test code = Negative Glucose) Appearance (test code = Clear Appearance) Color (test code = Color) [facility]
[2020-05-21 20:48] LABS: Absolute Lymphocytes (CBC) 2.3 K/uL (0.7-4.9); Basophils % 0.7 % (0-1.3); Hematocrit 44.3 % (36.0-45.0); Lymphocytes % 23.5 % (15.3-44.8); MPV 8.9 fL (7.6-11.3); RBC Red Blood Cell Count 4.75 M/uL (3.86-4.86)
[2020-05-21 20:59] LABS: Protime INR 1.07
[2020-05-21 21:12] LABS: ALT/SGPT 21 U/L (12-78); AST/SGOT 13 U/L (15-37); Albumin 4.1 g/dL (3.4-5.0); Alkaline Phosphatase 89 U/L (45-117); BUN Blood Urea Nitrogen 14 mg/dL (7-18); Bicarbonate 25 mmol/L (21-32); Bilirubin Direct < 0.1 mg/dL (0-0.2); Bilirubin Total 0.1 mg/dL (0.2-1.0); Glucose Level 122 mg/dL (74-106); Magnesium 2.3 mg/dL (1.8-2.4); NT PRO-BNP 26 pg/mL (<125); Potassium 4.1 mmol/L (3.5-5.1); Protein, Total 8.4 g/dL (6.4-8.2); Sodium Level 142 mmol/L (136-145); Troponin (Emerg Dept Use Only) < 0.02 ng/mL (0.0-0.045)
--- NOTE | 2020-05-21 22:16 | ER ---
Nurse's Notes [facility] Name: Irma Garcia Age: 30 yrs Sex: Female : 1990 Arrival Date: 05/21/2020 Time: 20:13 Bed 15 Private MD: Diagnosis: Other chest pain Presentation: 05/21 20:16 Chief complaint: Patient states: Seen earlier for chest pain and tooth infection. Here ll1 for continuing chest pain. States it feels like a cold wrap is around her trunk intermittently today. Problems since January with chest pain. States she went home, took her antibiotic for her throat infection, and vomited within 10 minutes. Coronavirus screen: Proceed with normal triage. Patient denies a cough. Patient denies shortness of breath or difficulty breathing. Patient denies measured and/or subjective temperature greater than 100.4F prior to today's visit. Patient denies travel on a cruise ship or to a country the [facility] currently lists as an affected area. Patient denies contact with known and/or suspected case of COVID-19. Ebola Screen: Patient denies travel to an Ebola-affected area in the 21 days before illness onset. Initial Sepsis Screen: Does the patient meet any 2 criteria? HR > 90 bpm. No. Patient's initial sepsis screen is negative. Risk Assessment: Do you want to hurt yourself or someone else? Patient reports no desire to harm self or others. Onset of symptoms was May 21, 2020. 20:16 Method Of Arrival: Ambulatory ll1 20:16 Acuity: LONNY 3 ll1 20:46 Initial Sepsis Screen: Does the patient have a suspected source of infection? No. mg2 Patient's initial sepsis screen is negative. 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 - Social history:: Smoking status: Patient denies any tobacco usage or history of. Patient/guardian denies using alcohol, street drugs, tobacco products. Screenin:45 Abuse screen: Denies threats or abuse. Denies injuries from another. Nutritional mg2 screening: No deficits noted. Tuberculosis screening: No symptoms or risk factors identified. Fall Risk IV access (20 points). Assessment: 20:43 General: Appears in no apparent distress. comfortable, Behavior is calm, cooperative. mg2 Pain: Complains of pain in chest Pain does not radiate. Pain currently is 3 out of 10 on a pain scale. Quality of pain is described as heavy, Pain began gradually, on and off since long time ( 3 months) Is intermittent. Neuro: Level of Consciousness is awake, alert, obeys commands, Oriented to person, place, time, situation. Cardiovascular: Capillary refill < 3 seconds Patient's skin is warm and dry. Respiratory: Airway is patent Respiratory effort is even, unlabored, Respiratory pattern is regular, symmetrical. GI: Abdomen is non-distended. : No signs and/or symptoms were reported regarding the genitourinary system. EENT: No signs and/or symptoms were reported regarding the EENT system. Derm: Skin is intact, is healthy with good turgor, Skin is pink, warm \T\ dry. normal. Vital Signs: 20:16 BP 138 / 89; Pulse 108; Resp 18; Temp 98.7; Pulse Ox 98% ; Pain 5/10; ll1 22:27 BP 109 / 66; Pulse 68; Resp 18; Temp 98; Pulse Ox 100% on R/A; mg2 ED Course: 20:13 Patient arrived in ED. cl3 20:19 Triage completed. ll1 20:19 Arm band placed on Patient placed in an exam room, on a stretcher. ll1 20:22 Brad Jett MD is Attending Physician. tw4 20:43 Luis Felipe Su, TONIO is Primary Nurse. mg2 20:45 Patient has correct armband on for positive identification. Pulse ox on. NIBP on. Door mg2 closed. Warm blanket given. 20:45 No provider procedures requiring assistance completed. Inserted saline lock: 20 gauge mg2 in right forearm, using aseptic technique. Patient maintains SpO2 saturation greater than 95% on room air. 20:51 XRAY Chest (1 view) In Process Unspecified. EDMS 22:15 Gen Thompson MD is Referral Physician. tw4 22:15 Philipp Broussard MD is Referral Physician. tw4 22:15 Pedro Sams MD is Referral Physician. tw4 22:27 IV discontinued, intact, bleeding controlled, No redness/swelling at site. Pressure mg2 dressing applied. Administered Medications: 22:12 Drug: TORadol 30 mg Route: IVP; Site: right forearm; mg2 22:29 Follow up: Response: No adverse reaction mg2 Outcome: 22:15 Discharge ordered by . tw4 22:27 Discharged to home ambulatory. mg2 22:27 Condition: stable 22:27 Discharge instructions given to patient, Instructed on discharge instructions, follow up and referral plans. Demonstrated understanding of instructions, follow-up care. 22:28 Patient left the ED. mg2 Signatures: Dispatcher [employer] EDBrad Craven MD MD tw4 Luis Felipe Su RN RN mg2 Yolanda Beatty cl3 Esha Beatty RN RN ll1 Corrections: (The following items were deleted from the chart) 20:20 20:16 Chief complaint: Patient states: Seen earlier for chest pain and tooth infection. ll1 Here for continuing chest pain. States it feels like a cold wrap is around her trunk intermittently today. Problems since January with chest pain. ll1
--- NOTE | 2020-05-21 22:16 | EDPHYS ---
Physician Documentation [facility] Name: Irma Garcia Age: 30 yrs Sex: Female : 1990 Arrival Date: 05/21/2020 Time: 20:13 Bed 15 Private MD: ED Physician Brad Jett HPI: 05/21 22:11 This 30 yrs old Female presents to ER via Ambulatory with complaints of Chest tw4 Pain, Numbness Of Arm. 22:11 The patient or guardian reports chest pain that is located primarily in the anterior tw4 chest wall. The pain does not radiate. Associated signs and symptoms: Pertinent positives: shortness of breath. The chest pain is described as dull. Duration: The patient or guardian reports multiple episodes, that are intermittent, that wax and wane, with no pattern. Modifying factors: The symptoms are alleviated by nothing. the symptoms are aggravated by nothing. Severity of pain: At its worst the pain was mild in the emergency department the pain is unchanged. The patient has not experienced similar symptoms in the past. 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 - Social history:: Smoking status: Patient denies any tobacco usage or history of. Patient/guardian denies using alcohol, street drugs, tobacco products. ROS: 22:11 Constitutional: Negative for fever, chills, and weight loss, Eyes: Negative for injury, tw4 pain, redness, and discharge, Abdomen/GI: Negative for abdominal pain, nausea, vomiting, diarrhea, and constipation, Back: Negative for injury and pain, MS/Extremity: Negative for injury and deformity, Skin: Negative for injury, rash, and discoloration, Neuro: Negative for headache, weakness, numbness, tingling, and seizure. 22:11 Cardiovascular: Positive for chest pain, Negative for edema, orthopnea, palpitations, paroxysmal nocturnal dyspnea. 22:11 Respiratory: Positive for shortness of breath, Negative for cough, dyspnea on exertion, hemoptysis, orthopnea, pleurisy, sputum production, wheezing. Exam: 22:11 Constitutional: This is a well developed, well nourished patient who is awake, alert, tw4 and in no acute distress. Head/Face: Normocephalic, atraumatic. Chest/axilla: Normal chest wall appearance and motion. Nontender with no deformity. No lesions are appreciated. Cardiovascular: Regular rate and rhythm with a normal S1 and S2. No gallops, murmurs, or rubs. Normal PMI, no JVD. No pulse deficits. Respiratory: Lungs have equal breath sounds bilaterally, clear to auscultation and percussion. No rales, rhonchi or wheezes noted. No increased work of breathing, no retractions or nasal flaring. Abdomen/GI: Soft, non-tender, with normal bowel sounds. No distension or tympany. No guarding or rebound. No evidence of tenderness throughout. Skin: Warm, dry with normal turgor. Normal color with no rashes, no lesions, and no evidence of cellulitis. MS/ Extremity: Pulses equal, no cyanosis. Neurovascular intact. Full, normal range of motion. Neuro: Awake and alert, GCS 15, oriented to person, place, time, and situation. Cranial nerves II-XII grossly intact. Motor strength 5/5 in all extremities. Sensory grossly intact. Cerebellar exam normal. Normal gait. Vital Signs: 20:16 BP 138 / 89; Pulse 108; Resp 18; Temp 98.7; Pulse Ox 98% ; Pain 5/10; ll1 22:27 BP 109 / 66; Pulse 68; Resp 18; Temp 98; Pulse Ox 100% on R/A; mg2 MDM: 22:11 Patient medically screened. tw4 22:13 Differential diagnosis: acute pericarditis, anxiety, coronary artery disease chest wall tw4 pain, gastroesophageal reflux disease (GERD), pericarditis, pulmonary embolus, stable angina. HEART Score: History: Slightly Suspicious (0), ECG: Normal (0), Age: < or = 45 years (0), Risk Factors: No Risk Factors Known (0), Troponin: < or = 1 x Normal Limit (0), Total Score = 0. Data reviewed: vital signs, nurses notes. Data reviewed: lab test result(s), cardiac enzymes, CBC, electrolytes, EKG, radiologic studies, plain films. Data interpreted: Pulse oximetry: Interpretation: normal. Test interpretation: by ED physician or midlevel provider: ECG, plain radiologic studies. Counseling: I had a detailed discussion with the patient and/or guardian regarding: the historical points, exam findings, and any diagnostic results supporting the discharge/admit diagnosis. Special discussion: Based on the patient's history, exam, and Dx evaluation, there is no indication for emergent intervention or inpatient Tx. It is understood by the patient/guardian that if the Sx's persist or worsen they need to return immediately for re-evaluation. I discussed with the patient/guardian in detail that at this point there is no indication for admission to the hospital. It is understood, however, that if the symptoms persist or worsen the patient needs to return immediately for re-evaluation. 05/21 20:23 Order name: Basic Metabolic Panel; Complete Time: 22:06 05/21 22:06 Interpretation: Normal except: CL 110; GLUC 122; GFR 88. 05/21 20:23 Order name: CBC with Diff; Complete Time: 22:06 05/21 22:07 Interpretation: Within normal limits. 05/21 20:23 Order name: LFT's; Complete Time: 22:06 05/21 22:07 Interpretation: Normal except: AST 13; BILIT 0.1; TP 8.4; GLOB 4.3; A/G 1.0. 05/21 20:23 Order name: Magnesium; Complete Time: 22:06 05/21 22:07 Interpretation: Within normal limits: MG 2.3. 05/21 20:23 Order name: NT PRO-BNP; Complete Time: 22:06 05/21 22:07 Interpretation: Within normal limits: NT PRO-BNP 26. 05/21 20:23 Order name: PT-INR; Complete Time: 22:06 05/21 22:07 Interpretation: Normal except: PT 12.6. 05/21 20:23 Order name: Troponin (emerg Dept Use Only); Complete Time: 22:06 05/21 22:07 Interpretation: Within normal limits: TROPED < 0.02. 05/21 20:23 Order name: XRAY Chest (1 view) 05/21 20:23 Order name: EKG; Complete Time: 20:24 05/21 20:23 Order name: Cardiac monitoring; Complete Time: 20:47 05/21 20:23 Order name: EKG - Nurse/Tech; Complete Time: 20:47 05/21 20:23 Order name: IV Saline Lock; Complete Time: 20:47 05/21 20:23 Order name: Labs collected and sent; Complete Time: 20:47 05/21 20:23 Order name: O2 Per Protocol; Complete Time: 20:47 05/21 20:23 Order name: O2 Sat Monitoring; Complete Time: 20:47 tw EC:11 Rate is 92 beats/min. Rhythm is regular. QRS [place] is Normal. MO interval is normal. QRS tw4 interval is normal. QT interval is normal. No Q waves. T waves are Normal. No ST changes noted. Clinical impression: Normal ECG. Interpreted by me. Reviewed by me. Administered Medications: 22:12 Drug: TORadol 30 mg Route: IVP; Site: right forearm; mg2 22:29 Follow up: Response: No adverse reaction mg2 Disposition: 05/21/20 22:15 Discharged to Home. Impression: Other chest pain. - Condition is Stable. - Discharge Instructions: Nonspecific Chest Pain. - Medication Reconciliation Form, Thank You Letter, Antibiotic Education, Prescription Opioid Use form. - Follow up: Private Physician; When: Upon discharge from the Emergency Department; Reason: Recheck today's complaints, Continuance of care, Re-evaluation by your physician. Follow up: Gen Thompson MD; When: Upon discharge from the Emergency Department; Reason: Recheck today's complaints, Continuance of care, Re-evaluation by your physician. Follow up: Philipp Broussard MD; When: Upon discharge from the Emergency Department; Reason: Recheck today's complaints, Continuance of care, Re-evaluation by your physician. Follow up: Pedro Sams MD; When: 1 - 2 days; Reason: Recheck today's complaints, Continuance of care, Re-evaluation by your physician. - Problem is new. - Symptoms have improved. Signatures: Dispatcher [employer] EDMS Brad Jett MD MD tw4 Luis Felipe Su RN RN mg2 Esha Beatty RN RN ll1 Corrections: (The following items were deleted from the chart) 22:15 22:15 05/21/2020 22:15 Discharged to Home. Impression: Other chest pain. Condition is tw4 Stable. Forms are Medication Reconciliation Form, Thank You Letter, Antibiotic Education, Prescription Opioid Use. Follow up: Private Physician; When: Upon discharge from the Emergency Department; Reason: Recheck today's complaints, Continuance of care, Re-evaluation by your physician. Problem is new. Symptoms have improved. tw4 22:28 22:15 05/21/2020 22:15 Discharged to Home. Impression: Other chest pain. Condition is mg2 Stable. Forms are Medication Reconciliation Form, Thank You Letter, Antibiotic Education, Prescription Opioid Use. Follow up: Private Physician; When: Upon discharge from the Emergency Department; Reason: Recheck today's complaints, Continuance of care, Re-evaluation by your physician. Follow up: Gen Thompson; When: Upon discharge from the Emergency Department; Reason: Recheck today's complaints, Continuance of care, Re-evaluation by your physician. Follow up: Philipp Broussard; When: Upon discharge from the Emergency Department; Reason: Recheck today's complaints, Continuance of care, Re-evaluation by your physician. Follow up: Pedro Sams; When: 1 - 2 days; Reason: Recheck today's complaints, Continuance of care, Re-evaluation by your physician. Problem is new. Symptoms have improved. tw4
[2020-05-21] MEDS ORDERED: KETOROLAC 30 MG/ML INJ ONE (22:17)
[2020-05-21 22:36] VITALS: BP 109/66; TEMP 98; O2SAT 100
--- NOTE | 2020-05-22 06:49 | EKG ---
Test Date: 2020-05-21 Test Time: 20:31:05 Developmental Psychologist: MEASUREMENT RESULTS: Intervals: Rate: 92 LA: 116 QRSD: 86 QT: 338 QTc: 417 Bradford: P: 17 LA: 116 QRS: 63 T: 15 INTERPRETIVE STATEMENTS: Normal sinus rhythm Normal ECG No previous ECG available for comparison Electronically Signed On 05-22-20 06:47:56 CDT by Gen Thompson
--- NOTE | 2020-05-22 07:11 | RAD REPORT ---
EXAM DESCRIPTION: RAD - Chest Single View - 05/21/2020 8:50 pm CLINICAL HISTORY: CHEST PAIN COMPARISON: None TECHNIQUE: AP portable chest image was obtained 05/21/2020 8:50 pm . FINDINGS: Lungs are clear. Heart and vasculature are normal. No measurable pleural effusion and no p neumothorax. No acute bony abnormality seen. No acute aortic findings suspected. IMPRESSION: No acute cardiopulmonary process.
== END 2020-05-21 22:28 | disposition home or self-care (01) ==
LOC: ER 20:11
DX: R07.89 Other chest pain (principal)
CPT/HCPCS: 36415; 71045; 80048; 80076; 83735; 83880; 84484; 85025; 85610; 93005; 96374; 99284

== ENCOUNTER 2020-09-07 16:57 | Emergency (ER) | payer SELFPAY ==
--- OUTSIDE RECORDS SUMMARY | 2020-09-07 17:01 | XMS REPORT | Continuity of Care Document ---
:1990 Author Organization [facility] t Address [address] [place] [address] Care Team Providers Name Role Phone Unavailable [...] Start Date Stop Date Source Former Smoker [facility] Medications Ordered Filled Start [...] BMI (Body Mass 2020-05-18 00:00:00 30.6 kg/m2 [facility] Index) Group BP Systolic 2020-05-18 00:00:00 127 mm[Hg] [facility] Body Weight 2020-05-18 00:00:00 178 [lb_av] [facility] BP Diastolic 2019-05-02 00:00:00 82 mm[Hg] [facility] Height 2019-05-02 00:00:00 64 [in_i] [facility] BMI (Body Mass 2019-05-02 00:00:00 29.4 kg/m2 [facility] Medical Index) Group BP Systolic 2019-05-02 00:00:00 126 mm[Hg] [facility] Body Weight 2019-05-02 00:00:00 171 [lb_av] [facility] BP Diastolic 2019-04-08 00:00:00 82 mm[Hg] [facility] Height 2019-04-08 00:00:00 64 [in_i] [facility] BMI (Body Mass 2019-04-08 00:00:00 32.4 kg/m2 [facility] Medical Index) Group BP Systolic 2019-04-08 00:00:00 121 mm[Hg] [facility] Body Weight 2019-04-08 00:00:00 188.7 [lb_av] [facility] BP Diastolic 2019-03-29 00:00:00 86 mm[Hg] [facility] Height 2019-03-29 00:00:00 64 [in_i] [facility] BMI (Body Mass 2019-03-29 00:00:00 32.1 kg/m2 [facility] Medical Index) Group BP Systolic 2019-03-29 00:00:00 111 mm[Hg] [facility] Body Weight 2019-03-29 00:00:00 187 [lb_av] [facility] BP Diastolic 2019-03-08 00:00:00 74 mm[Hg] [facility] Height 2019-03-08 00:00:00 64 [in_i] [facility] BMI (Body Mass 2019-03-08 00:00:00 32.1 kg/m2 [facility] Medical Index) Group BP Systolic 2019-03-08 00:00:00 121 mm[Hg] [facility] Body Weight 2019-03-08 00:00:00 187 [lb_av] [facility] BP Diastolic 2019 00:00:00 76 mm[Hg] [facility] Height 2019 00:00:00 64 [in_i] [facility] BMI (Body Mass 2019 00:00:00 31.6 kg/m2 [facility] Medical Index) Group BP Systolic 2019 00:00:00 120 mm[Hg] [facility] Body Weight 2019 00:00:00 184.2 [lb_av] [facility] BP Diastolic 2019-01-25 00:00:00 73 mm[Hg] [facility] Height 2019-01-25 00:00:00 64 [in_i] [facility] BMI (Body Mass 2019-01-25 00:00:00 30.2 kg/m2 [facility] BP Systolic 2019-01-25 00:00:00 114 mm[Hg] [facility] Body Weight 2019-01-25 00:00:00 176 [lb_av] [facility] BP Diastolic 2019-01-08 00:00:00 70 mm[Hg] [facility] Height 2019-01-08 00:00:00 64 [in_i] [facility] BMI (Body Mass 2019-01-08 00:00:00 29.8 kg/m2 [facility] Medical Index) Group BP Systolic 2019-01-08 00:00:00 109 mm[Hg] [facility] Body Weight 2019-01-08 00:00:00 173.4 [lb_av] [facility] BP Diastolic 2018-11-30 00:00:00 61 mm[Hg] [facility] Height 2018-11-30 00:00:00 64 [in_i] [facility] BMI (Body Mass 2018-11-30 00:00:00 29.2 kg/m2 [facility] Medical Index) Group BP Systolic 2018-11-30 00:00:00 119 mm[Hg] [facility] Body Weight 2018-11-30 00:00:00 170 [facility] Procedures Procedure Date / Time Performing Clinician Source Performed US, obstetric, limited 2019-03-29 00:00:00 [facility] ULTRASOUND REPEAT 2019-01-25 00:00:00 [facility] ULTRASOUND, 2018-11-30 00:00:00 [facility] UTERUS REAL TIME WITH Group IMAGE DOC, AND MATERNAL EVAL PLUS DETAILED ANATOMIC EXAMINATION, TRANSABDOMINAL APPROACH; SINGLE OR FIRST GESTATION US, obstetric, limited 2018-11-02 00:00:00 [facility] Plan of Care Planned Activity Planned Date Details Comments Source Diagnostic Test 2020-05-18 wet mount, vaginal [facility] Pending 00:00:00 [code = wet mount, Group vaginal] Diagnostic Test 2020-05-18 CT + NG DNA, PCR, [facility] Pending 00:00:00 cervical [code = Group CT + NG DNA, PCR, cervical] Diagnostic Test 2020-05-18 urinalysis, [facility] 00:00:00 dipstick [code = Group urinalysis, dipstick] Diagnostic Test 2020-05-18 pap, LB + reflex [facility] Pending 00:00:00 to HR HPV if ASC-U Group [code = pap, LB + reflex to HR HPV if ASC-U] Encounters Start End Encounter Admission Attending Care Care Encounter Source Date/Time Date/Time Type Type Clinicians Facility Department ID 2020-05-18 2020-05-18 Hammad [place] - [id number] [facility] 00:00:00 00:00:00 [facility] lilibeth Arias MD: [address] [place] [phone] , Ph. [phone] 2019-05-02 2019-05-02 Hammad [place] - [id number] [facility] 00:00:00 00:00:00 Discovery lilibeth Arias MD: [address] [place] [phone] , Ph. [phone] 2019-04-08 2019-04-08 Hammad [place] - [id number] [facility] 00:00:00 00:00:00 Discovery lilibeth Arias MD: [address] [place] [phone] , Ph. [phone] 2019-03-29 2019-03-29 Hammad [place] - [id number] [facility] 00:00:00 00:00:00 Discovery lilibeth Arias MD: [address] [place] [phone] , Ph. [phone] 2019-03-08 2019-03-08 Syeda [place] - [id number] M [facility] 00:00:00 00:00:00 [facility] ISBELL: [address] [place] [phone] , Ph. [phone] 2019 2019 Michelle [place] - [id number] [facility] 00:00:00 00:00:00 Discovery lilibeth Covarrubias WHNP: [address] [place] [phone] , Ph. [phone] 2019-01-25 2019-01-25 Hammad [place] - [id number] [facility] 00:00:00 00:00:00 Discovery lilibeth Arias MD: [address] [place] [phone] , Ph. [phone] 2019-01-08 2019-01-08 Michelle [place] - [id number] [facility] 00:00:00 00:00:00 Discovery lilibeth Covarrubias NP: [address] [place] [phone] , Ph. [phone] 2018-11-30 2018-11-30 iMchelle [place] - [id number] [facility] 00:00:00 00:00:00 Discovery lilibeth Covarrubias WHNP: [address] [facility] [place] [address] , Ph. [phone] 2018-11-02 2018-11-02 Hammad [place] - [id number] M [facility] 00:00:00 00:00:00 Discovery lilibeth Arias MD: [address] [facility] [place] [address] , Ph. [phone] Results Test Description Test Time Test Comments [...] (test code = Blood) Hemolyzed: Trace Specific Sigurd (test code = Specific Sigurd) 1.015 Ketone (test code = Ketone) Negative Bilirubin (test code = Bilirubin) Negative Glucose (test code = Glucose) Negative Appearance (test code = Appearance) Clear Color (test code = Color) Yellow [facility] (dipstick) panel - [id number] 09:59:00 Test Item Value Reference Range Interpretation Comments Leukocytes (test code = Leukocytes) Trace Nitrite (test code = Nitrite) negative Urobilinogen (test code = .2 Urobilinogen) Protein (test code = Protein) Negative pH (test code = pH) 6.0 Blood (test code = Blood) Large Specific Sigurd (test code = 1.015 Specific Sigurd) Ketone (test code = Ketone) Negative Bilirubin (test code = Bilirubin) Negative Glucose (test code = Glucose) Negative Appearance (test code = Appearance) Clear Color (test code = Color) [facility] Differential panel - [id number] 00:00:00 Test Item Value Reference Range Interpretation [...] fL 78-98 [Entitic volume] (test code = 87350-9) Erythrocyte mean corpuscular 32.4 pg 26.2-33.4 hemoglobin [Entitic mass] (test code = 92376-6) mean corpuscular HGB conc (test 35.0 g/dL 31.5-36.2 code = mean corpuscular HGB conc) red cell distribution width (test 11.8 % 11.5-15.5 code = red cell distribution width) Platelets [#/volume] in Blood (test 180 K/uL 137-338 code = 97416-8) Platelet mean volume [Entitic 8.4 fL 8.4-11.8 volume] in Blood (test code = 29383-8) Neutrophils.band form/100 53.8 % 44.4-80.1 leukocytes in Blood (test code = 39478-7) Lymphocytes/100 leukocytes in Body 34.6 % 10.0-50.0 fluid (test code = 55048-3) Monocytes/100 leukocytes in Blood 6.7 % 3.6-12.04 by Automated count (test code = 5905-5) Eosinophils/100 leukocytes in Blood 4.3 % 0.0-5.41 by Automated count (test code = 713-8) Basophils/100 leukocytes in 0.7 % 0.0-0.79 Unspecified specimen (test code = 75903-2) [facility] and Indirect antibody screen panel - Blood 2019-04-11 00:00:00 Test Item Value Reference Range Interpretation Comments Rh [Type] in Blood (test code = 4+ 80667-9) ABO and Rh group panel - Blood O positive (test code = 11228-7) [facility] [Presence] in Serum by [id number] 00:00:00 Test Item Value Reference Range Interpretation Comments Reagin Ab [Presence] in Serum by nonreactive nonreactive RPR (test code = 09040-6) [facility] W Auto Differential panel - [id number] 00:00:00 Test Item Value Reference Range Interpretation [...] fL 78-98 [Entitic volume] (test code = 04710-9) Erythrocyte mean corpuscular 31.7 pg 26.2-33.4 hemoglobin [Entitic mass] (test code = 41595-8) mean corpuscular HGB conc (test 34.2 g/dL 31.5-36.2 code = mean corpuscular HGB conc) red cell distribution width (test 12.0 % 11.5-15.5 code = red cell distribution width) Platelets [#/volume] in Blood (test 194 K/uL 137-338 code = 50632-8) Platelet mean volume [Entitic 10.0 fL 8.4-11.8 volume] in Blood (test code = 87913-6) Neutrophils.band form/100 72.8 % 44.4-80.1 leukocytes in Blood (test code = 46903-6) Lymphocytes/100 leukocytes in Body 19.8 % 10.0-50.0 fluid (test code = 68443-1) Monocytes/100 leukocytes in Blood 5.3 % 3.6-12.04 by Automated count (test code = 5905-5) Eosinophils/100 leukocytes in Blood 1.6 % 0.0-5.41 by Automated count (test code = 713-8) Basophils/100 leukocytes in 0.6 % 0.0-0.79 Unspecified specimen (test code = 72115-4) [facility]atitis [facility] virus surface Ag [Presence] in Serum 2019-04-11 00:00:00 Test Item Value Reference Range Interpretation Comments .hepatitis B surface antigen (test negative negative code = .hepatitis B surface antigen) [facility] macro (dipstick) panel - [id number] 11:23:18 Test Item Value Reference Range Interpretation Comments Leukocytes (test code = Small Leukocytes) Nitrite (test code = negative Nitrite) Urobilinogen (test code = .2 Urobilinogen) Protein (test code = Negative Protein) pH (test code = pH) 5.5 Blood (test code = Blood) Non-Hemolyzed: Trace Specific Sigurd (test 1.010 code = Specific Sigurd) Ketone (test code = Negative Ketone) Bilirubin (test code = Negative Bilirubin) Glucose (test code = Negative Glucose) Appearance (test code = Clear Appearance) Color (test code = Color) Yellow [facility] macro (dipstick) panel - [id number] 11:23:18 Test Item Value Reference Range Interpretation Comments Leukocytes (test code = Small Leukocytes) Nitrite (test code = negative Nitrite) Urobilinogen (test code = .2 Urobilinogen) Protein (test code = Negative Protein) pH (test code = pH) 5.5 Blood (test code = Blood) Non-Hemolyzed: Trace Specific Sigurd (test 1.010 code = Specific Sigurd) Ketone (test code = Negative Ketone) Bilirubin (test code = Negative Bilirubin) Glucose (test code = Negative Glucose) Appearance (test code = Clear Appearance) Color (test code = Color) Yellow [facility] macro (dipstick) panel - [id number] 09:41:23 Test Item Value Reference Range Interpretation Comments Leukocytes (test code = Large Leukocytes) Nitrite (test code = negative Nitrite) Urobilinogen (test code = .2 Urobilinogen) Protein (test code = Negative Protein) pH (test code = pH) 7.0 Blood (test code = Blood) Non-Hemolyzed: Trace Specific Sigurd (test 1.020 code = Specific Sigurd) Ketone (test code = Negative Ketone) Bilirubin (test code = Negative Bilirubin) Glucose (test code = Negative Glucose) Appearance (test code = Clear Appearance) Color (test code = Color) Yellow [facility] macro (dipstick) panel - [id number] 09:41:23 Test Item Value Reference Range Interpretation Comments Leukocytes (test code = Large Leukocytes) Nitrite (test code = negative Nitrite) Urobilinogen (test code = .2 Urobilinogen) Protein (test code = Negative Protein) pH (test code = pH) 7.0 Blood (test code = Blood) Non-Hemolyzed: Trace Specific Sigurd (test 1.020 code = Specific Sigurd) Ketone (test code = Negative Ketone) Bilirubin (test code = Negative Bilirubin) Glucose (test code = Negative Glucose) Appearance (test code = Clear Appearance) Color (test code = Color) Yellow [facility] [Presence] in Unspecified specimen by Organism specific [id number] 00:00:00 Test Item Value Reference Range Interpretation [...] [facility] macro (dipstick) panel - [id number] 10:32:00 Test Item Value Reference Range Interpretation Comments Leukocytes (test code = Leukocytes) Trace Nitrite (test code = Nitrite) negative Urobilinogen (test code = .2 Urobilinogen) Protein (test code = Protein) Negative pH (test code = pH) 7.0 Blood (test code = Blood) Negative Specific Sigurd (test code = 1.010 Specific Sigurd) Ketone (test code = Ketone) Negative Bilirubin (test code = Bilirubin) Negative Glucose (test code = Glucose) Negative Appearance (test code = Appearance) Clear Color (test code = Color) Yellow [facility] CenterUr[facility]ysis macro (dipstick) panel - [id number] 10:32:00 Test Item Value Reference Range Interpretation Comments Leukocytes (test code = Leukocytes) Trace Nitrite (test code = Nitrite) negative Urobilinogen (test code = .2 Urobilinogen) Protein (test code = Protein) Negative pH (test code = pH) 7.0 Blood (test code = Blood) Negative Specific Sigurd (test code = 1.010 Specific Sigurd) Ketone (test code = Ketone) Negative Bilirubin (test code = Bilirubin) Negative Glucose (test code = Glucose) Negative Appearance (test code = Appearance) Clear Color (test code = Color) Yellow [facility] macro (dipstick) panel - [id number] 09:23:00 Test Item Value Reference Range Interpretation Comments Leukocytes (test code = Trace Leukocytes) Nitrite (test code = negative Nitrite) Urobilinogen (test code = .2 Urobilinogen) Protein (test code = 30 Protein) pH (test code = pH) 7.0 Blood (test code = Blood) Hemolyzed: Trace Specific Sigurd (test code 1.030 = Specific Sigurd) Ketone (test code = Ketone) Negative Bilirubin (test code = Negative Bilirubin) Glucose (test code = Negative Glucose) Appearance (test code = Clear Appearance) Color (test code = Color) Yellow [facility] macro (dipstick) panel - [id number] 09:23:00 Test Item Value Reference Range Interpretation Comments Leukocytes (test code = Trace Leukocytes) Nitrite (test code = negative Nitrite) Urobilinogen (test code = .2 Urobilinogen) Protein (test code = 30 Protein) pH (test code = pH) 7.0 Blood (test code = Blood) Hemolyzed: Trace Specific Sigurd (test code 1.030 = Specific Sigurd) Ketone (test code = Ketone) Negative Bilirubin (test code = Negative Bilirubin) Glucose (test code = Negative Glucose) Appearance (test code = Clear Appearance) Color (test code = Color) Yellow [facility] identified in Urine by [id number] 08:58:00Bacteria Ur [facility] GroupGlucose [Mass/volume] in Serum or Plasma --1 hour post dose [id number] 14:01:00 Test Item Value Reference Range Interpretation Comments Results (test code = Results) 147 [facility] GroupGlucose [Mass/volume] in Serum or Plasma --1 hour post dose [id number] 14:01:00 Test Item Value Reference Range Interpretation Comments Results (test code = Results) 147 [facility] CenterUrinalysis macro (dipstick) panel - [id number] 09:42:39 Test Item Value Reference Range Interpretation Comments Leukocytes (test code = Small Leukocytes) Nitrite (test code = negative Nitrite) Urobilinogen (test code = .2 Urobilinogen) Protein (test code = Negative Protein) pH (test code = pH) 7.0 Blood (test code = Blood) Non-Hemolyzed: Trace Specific Sigurd (test 1.020 code = Specific Sigurd) Ketone (test code = Negative Ketone) Bilirubin (test code = Negative Bilirubin) Glucose (test code = Negative Glucose) Appearance (test code = Clear Appearance) Color (test code = Color) Yellow [facility] GroupUrinalysis macro (dipstick) panel - [id number] 09:42:39 Test Item Value Reference Range Interpretation Comments Leukocytes (test code = Small Leukocytes) Nitrite (test code = negative Nitrite) Urobilinogen (test code = .2 Urobilinogen) Protein (test code = Negative Protein) pH (test code = pH) 7.0 Blood (test code = Blood) Non-Hemolyzed: Trace Specific Sigurd (test 1.020 code = Specific Sigurd) Ketone (test code = Negative Ketone) Bilirubin (test code = Negative Bilirubin) Glucose (test code = Negative Glucose) Appearance (test code = Clear Appearance) Color (test code = Color) Yellow [facility] W Auto Differential panel - [id number] 09:40:00 Test Item Value Reference Range Interpretation Comments white blood count (test code = 9.1 K/uL 4.0-11.5 white blood count) red blood count (test code = red 3.98 M/uL 3.80-5.20 blood count) Hemoglobin [Mass/volume] in Blood 13.2 g/dL 10.5-15.7 (test code = 718-7) hematocrit (test code = hematocrit) 38.8 % 34.0-50.0 Erythrocyte mean corpuscular volume 97.5 fL 78-98 [Entitic volume] (test code = 47771-5) Erythrocyte mean corpuscular 33.1 pg 26.2-33.4 hemoglobin [Entitic mass] (test code = 64821-6) mean corpuscular HGB conc (test 34.0 g/dL 31.5-36.2 code = mean corpuscular HGB conc) red cell distribution width (test 11.9 % 11.5-15.5 code = red cell distribution width) Platelets [#/volume] in Blood (test 212 K/uL 137-338 code = 80077-9) Platelet mean volume [Entitic 8.1 fL 8.4-11.8 L volume] in Blood (test code = 56622-9) Neutrophils.band form/100 64.3 % 44.4-80.1 leukocytes in Blood (test code = 11811-1) Lymphocytes/100 leukocytes in Body 27.5 % 10.0-50.0 fluid (test code = 77185-8) Monocytes/100 leukocytes in Blood 4.2 % 3.6-12.04 [...] [facility] Center[facility] [Presence] in Serum by [id number] 09:40:00 Test Item Value Reference Range Interpretation Comments Reagin Ab [Presence] in Serum by nonreactive nonreactive RPR (test code = 70659-2) [facility] CenterHIV 1+2 Ab [Presence] in [id number] 09:40:00HIV P24 AgHIV-1/2 [facility] HospitalBacteria identified in Urine by Culture 2019-01-08 11:21:00 Test Item Value Reference Range Interpretation Comments Bacteria identified in no growth at 48 hrs. Urine by Culture (test code = 630-4) [facility] CenterUrinalysis macro (dipstick) panel - [id number] 09:20:42 Test Item Value Reference Range Interpretation Comments Leukocytes (test code = Leukocytes) Trace Nitrite (test code = Nitrite) negative Urobilinogen (test code = .2 Urobilinogen) Protein (test code = Protein) 30 pH (test code = pH) 6.0 Blood (test code = Blood) Small Specific Sigurd (test code = 1.025 Specific Sigurd) Ketone (test code = Ketone) Trace Bilirubin (test code = Bilirubin) Negative Glucose (test code = Glucose) Negative Appearance (test code = Appearance) Clear Color (test code = Color) Yellow [facility] CenterUrinalysis macro (dipstick) panel - [id number] 09:20:42 Test Item Value Reference Range Interpretation Comments Leukocytes (test code = Leukocytes) Trace Nitrite (test code = Nitrite) negative Urobilinogen (test code = .2 Urobilinogen) Protein (test code = Protein) 30 pH (test code = pH) 6.0 Blood (test code = Blood) Small Specific Sigurd (test code = 1.025 Specific Sigurd) Ketone (test code = Ketone) Trace Bilirubin (test code = Bilirubin) Negative Glucose (test code = Glucose) Negative Appearance (test code = Appearance) Clear Color (test code = Color) [facility] (dipstick) panel - [id number] 10:02:59 Test Item Value Reference Range Interpretation Comments Leukocytes (test code = Trace Leukocytes) Nitrite (test code = negative Nitrite) Urobilinogen (test code = .2 Urobilinogen) Protein (test code = Negative Protein) pH (test code = pH) 7.0 Blood (test code = Blood) Non-Hemolyzed: Trace Specific Sigurd (test 1.020 code = Specific Sigurd) Ketone (test code = Negative Ketone) Bilirubin (test code = Negative Bilirubin) Glucose (test code = Negative Glucose) Appearance (test code = Clear Appearance) Color (test code = Color) [facility] macro (dipstick) panel - [id number] 09:28:13 Test Item Value Reference Range Interpretation Comments Leukocytes (test code = Negative Leukocytes) Nitrite (test code = negative Nitrite) Urobilinogen (test code = .2 Urobilinogen) Protein (test code = Negative Protein) pH (test code = pH) 7.0 Blood (test code = Blood) Hemolyzed: Trace Specific Sigurd (test code 1.015 = Specific Sigurd) Ketone (test code = Ketone) Negative Bilirubin (test code = Negative Bilirubin) Glucose (test code = Negative Glucose) Appearance (test code = Clear Appearance) Color (test code = Color) [facility]
[2020-09-07] MEDS ORDERED: MECLIZINE HCL 12.5 MG TAB ONE (18:03)
--- NOTE | 2020-09-07 18:13 | RAD REPORT ---
EXAM DESCRIPTION: CT - Head Brain Wo Cont - 09/07/2020 6:04 pm CLINICAL HISTORY: DIZZINESS Headache, drowsiness COMPARISON: No comparisons TECHNIQUE: All CT scans are performed using dose optimization technique as appropriate and may inclu de automated exposure control or mA/KV adjustment according to patient size. FINDINGS: No intracranial hemorrhage, hydrocephalus or extra-axial fluid collection.No areas of brai n edema or evidence of midline shift. Mild mucosal thickening of the anterior ethmoid air cells and frontal sinuses noted. The paranasal si nuses and mastoids are otherwise clear. The calvarium is intact. IMPRESSION: No acute intracranial abnormality.
[2020-09-07 18:26] LABS: Absolute Lymphocytes (CBC) 1.9 K/uL (0.7-4.9); Basophils % 0.3 % (0-1.3); Hematocrit 40.8 % (36.0-45.0); Lymphocytes % 19.1 % (15.3-44.8); RBC Red Blood Cell Count 4.43 M/uL (3.86-4.86)
[2020-09-07 18:47] LABS: BUN Blood Urea Nitrogen 14 mg/dL (7-18); Bicarbonate 27 mmol/L (21-32); Glucose Level 101 mg/dL (74-106); Magnesium 2.1 mg/dL (1.8-2.4); Potassium 3.5 mmol/L (3.5-5.1); Sodium Level 140 mmol/L (136-145); Thyroid Stimulating Hormone 0.816 uIU/mL (0.360-3.740)
--- NOTE | 2020-09-07 19:05 | EDPHYS ---
Physician Documentation [facility] Name: Irma Garcia Age: 30 yrs Sex: Female : 1990 Arrival Date: 09/07/2020 Time: 17:00 Bed 26 Private MD: ED Physician Teofilo Borrero HPI: 09/07 18:31 This 30 yrs old Female presents to ER via Ambulatory with complaints of jr8 Anxiety, Dizziness, headache. 18:31 Patient stated that she has history of anxiety. Over the past few days started to have jr8 dizziness and headaches that are not relieved by anything. Starting to worsen her anxiety . Severity of symptoms: At their worst the symptoms were moderate in the emergency department the symptoms are unchanged. The patient has not experienced similar symptoms in the past. The patient has not recently seen a physician. 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 - Social history:: Smoking status: Patient/guardian denies using tobacco, the patient reports quitting approximately 1 years ago. ROS: 19:03 Eyes: Negative for injury, pain, redness, and discharge, ENT: Negative for injury, jr8 pain, and discharge, Neck: Negative for injury, pain, and swelling, Cardiovascular: Negative for chest pain, palpitations, and edema, Respiratory: Negative for shortness of breath, cough, wheezing, and pleuritic chest pain, Abdomen/GI: Negative for abdominal pain, nausea, vomiting, diarrhea, and constipation, Back: Negative for injury and pain, MS/Extremity: Negative for injury and deformity, Skin: Negative for injury, rash, and discoloration. 19:03 Neuro: Positive for dizziness, headache. Exam: 19:03 Eyes: Pupils equal round and reactive to light, extra-ocular motions intact. Lids and jr8 lashes normal. Conjunctiva and sclera are non-icteric and not injected. Cornea within normal limits. Periorbital areas with no swelling, redness, or edema. ENT: Nares patent. No nasal discharge, no septal abnormalities noted. Tympanic membranes are normal and external auditory canals are clear. Oropharynx with no redness, swelling, or masses, exudates, or evidence of obstruction, uvula midline. Mucous membranes moist. Neck: Trachea midline, no thyromegaly or masses palpated, and no cervical lymphadenopathy. Supple, full range of motion without nuchal rigidity, or vertebral point tenderness. No Meningismus. Cardiovascular: Regular rate and rhythm with a normal S1 and S2. No gallops, murmurs, or rubs. Normal PMI, no JVD. No pulse deficits. Respiratory: Lungs have equal breath sounds bilaterally, clear to auscultation and percussion. No rales, rhonchi or wheezes noted. No increased work of breathing, no retractions or nasal flaring. Abdomen/GI: Soft, non-tender, with normal bowel sounds. No distension or tympany. No guarding or rebound. No evidence of tenderness throughout. Back: No spinal tenderness. No costovertebral tenderness. Full range of motion. Skin: Warm, dry with normal turgor. Normal color with no rashes, no lesions, and no evidence of cellulitis. MS/ Extremity: Pulses equal, no cyanosis. Neurovascular intact. Full, normal range of motion. 19:03 Neuro: Orientation: to person, place \T\ time. Mentation: is normal, Memory: is normal, immediate memory is intact, recent memory is intact, remote memory is intact, Cranial nerves: CN I not tested, CN II- XII are normal as tested, visual daugherty are intact. extraocular movements are intact, Facial palsy and sensory deficits are absent. left lateral nystagmus, Speech is clear and appropriate. Tongue strength is normal, Cerebellar function: normal finger to nose testing, heel to boo testing is normal, Motor: moves all fours, strength is 5/5 in all extremities, Sensation: no obvious gross deficits, seizure activity, is not displayed by the patient, Abnormal movements: there are no abnormal movements. Vital Signs: 17:31 BP 130 / 93; Pulse 80; Resp 16 S; Temp 98.5(O); Pulse Ox 100% on R/A; Weight 77.11 kg jd3 (R); Height 5 ft. 4 in. (162.56 cm) (R); Pain 6/10; 19:13 BP 119 / 80; Pulse 62; Resp 17 S; Pulse Ox 97% on R/A; jd3 17:31 Body Mass Index 29.18 (77.11 kg, 162.56 cm) jd3 MDM: 17:25 Patient medically screened. [facility] 19:03 Data reviewed: vital signs, nurses notes, lab test result(s), radiologic studies, CT jr8 scan. Data interpreted: Pulse oximetry: on room air is 100 %. Interpretation: normal. Counseling: I had a detailed discussion with the patient and/or guardian regarding: the historical points, exam findings, and any diagnostic results supporting the discharge/admit diagnosis, lab results, radiology results, the need for outpatient follow up, an ENT specialist, a family practitioner, to return to the emergency department if symptoms worsen or persist or if there are any questions or concerns that arise at home. Response to treatment: the patient's symptoms have markedly improved after treatment. 09/07 17:43 Order name: CBC with Diff; Complete Time: 18:51 jr8 09/07 17:43 Order name: Basic Metabolic Panel; Complete Time: 18:51 8 09/07 17:43 Order name: Magnesium; Complete Time: 18:51 jr8 09/07 17:43 Order name: TSH; Complete Time: 18:51 jr8 09/07 17:43 Order name: T4 Free; Complete Time: 18:51 jr8 09/07 17:43 Order name: CT Head Brain wo Cont; Complete Time: 18:16 jr8 09/07 17:43 Order name: IV; Complete Time: 18:16 jr8 Administered Medications: 17:52 Drug: Meclizine 25 mg Route: PO; [facility] 18:50 Follow up: Response: No adverse reaction jd3 Disposition: 09/08 07:36 Co-signature as Attending Physician, Teofilo Borrero MD I agree with the assessment and [facility] plan of care. Disposition: 09/07/20 19:04 Discharged to Home. Impression: Dizziness. - Condition is Stable. - Discharge Instructions: Vertigo. - Prescriptions for Meclizine 25 mg Oral Tablet - take 1 tablet by ORAL route every 8 hours As needed; 30 tablet. Zofran 4 mg Oral Tablet - take 1 tablet by ORAL route every 12 hours As needed; 20 tablet. - Medication Reconciliation Form, Thank You Letter, Antibiotic Education, Prescription Opioid Use form. - Follow up: Elle Jeff MD; When: 7 - 10 days; Reason: If symptoms return, Recheck today's complaints, Continuance of care, Re-evaluation by your physician. - Problem is new. - Symptoms have improved. Signatures: Dispatcher [employer] EDTeofilo Johnson MD MD cha Roszak, Josh, PA PA jr8 Prince Pitts, RN RN jd3 Corrections: (The following items were deleted from the chart) 09/07 19:14 19:04 09/07/2020 19:04 Discharged to Home. Impression: Dizziness. Condition is Stable. jd3 Forms are Medication Reconciliation Form, Thank You Letter, Antibiotic Education, Prescription Opioid Use. Follow up: Elle Jeff; When: 7 - 10 days; Reason: If symptoms return, Recheck today's complaints, Continuance of care, Re-evaluation by your physician. Problem is new. Symptoms have improved. jr8
--- NOTE | 2020-09-07 19:05 | ER ---
Nurse's Notes [facility] Name: Irma Garcia Age: 30 yrs Sex: Female : 1990 Arrival Date: 09/07/2020 Time: 17:00 Bed 26 Private MD: Diagnosis: Dizziness Presentation: 09/07 17:29 Chief complaint: Patient states: "I have been having dizziness for about a week since jd3 about Monday last week. It is getting to the point that I am getting sick to my stomach. Monday I think was the worst that I couldn't even lay down to sleep because of being so sick to my stomach. I have also been having a stiffness in my neck and my ears are popping that has made the dizziness worse. all this is making my anxiety worse and I need to be able to function for my kids.". Coronavirus screen: At this time, the client does not indicate any symptoms associated with coronavirus-19. Ebola Screen: Patient negative for fever greater than or equal to 101.5 degrees Fahrenheit, and additional compatible Ebola Virus Disease symptoms. Initial Sepsis Screen: Does the patient meet any 2 criteria? No. Patient's initial sepsis screen is negative. Does the patient have a suspected source of infection? No. Patient's initial sepsis screen is negative. Risk Assessment: Do you want to hurt yourself or someone else? Patient reports no desire to harm self or others. Onset of symptoms was September 01, 2020. 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 - Social history:: Smoking status: Patient/guardian denies using tobacco, the patient reports quitting approximately 1 years ago. Screenin:34 Abuse screen: Denies threats or abuse. Nutritional screening: No deficits noted. jd3 Tuberculosis screening: No symptoms or risk factors identified. Fall Risk Ambulatory Aid- None/Bed Rest/Nurse Assist (0 pts). Gait- Normal/Bed Rest/Wheelchair (0 pts) Mental Status- Oriented to own ability (0 pts). Total Jaimes Fall Scale indicates No Risk (0-24 pts). Assessment: 17:32 General: Appears in no apparent distress. uncomfortable, Behavior is calm, cooperative, jd3 appropriate for age. Pain: Complains of pain in head and neck Pain does not radiate. Quality of pain is described as aching, Pain began gradually. Neuro: Level of Consciousness is awake, alert, obeys commands, Oriented to person, place, time, situation, Moves all extremities. Full function Gait is steady, Speech is normal, Facial symmetry appears normal, Pupils are PERRLA, Reports dizziness, Denies blurred vision numbness. Cardiovascular: Denies chest pain, Capillary refill < 3 seconds Patient's skin is warm and dry. Respiratory: Airway is patent Respiratory effort is even, unlabored, Respiratory pattern is regular, symmetrical, Denies cough, shortness of breath. GI: Reports nausea with worsening dizziness. : No signs and/or symptoms were reported regarding the genitourinary system. EENT: Reports ears popping. Derm: Skin is intact, Skin is dry, Skin is normal, Skin temperature is warm. 18:39 Reassessment: Patient appears in no apparent distress at this time. No changes from jd3 previously documented assessment. Patient and/or family updated on plan of care and expected duration. Pain level reassessed. Patient is alert, oriented x 3, equal unlabored respirations, skin warm/dry/pink. 19:13 Reassessment: Patient appears in no apparent distress at this time. Patient and/or [facility] family updated on plan of care and expected duration. Pain level reassessed. Patient is alert, oriented x 3, equal unlabored respirations, skin warm/dry/pink. Patient states feeling better. Vital Signs: 17:31 BP 130 / 93; Pulse 80; Resp 16 S; Temp 98.5(O); Pulse Ox 100% on R/A; Weight 77.11 kg jd3 (R); Height 5 ft. 4 in. (162.56 cm) (R); Pain 6/10; 19:13 BP 119 / 80; Pulse 62; Resp 17 S; Pulse Ox 97% on R/A; jd3 17:31 Body Mass Index 29.18 (77.11 kg, 162.56 cm) jd3 ED Course: 17:00 Patient arrived in ED. as 17:16 Wenceslao Hayes PA is PHCP. jr8 17:16 Teofilo Borrero MD is Attending Physician. jr8 17:27 Prince Pitts, RN is Primary Nurse. jd3 17:31 Triage completed. jd3 17:32 Arm band placed on. jd3 17:34 Patient has correct armband on for positive identification. Bed in low position. Call jd3 light in reach. Side rails up X 1. Pulse ox on. NIBP on. 17:35 Patient maintains SpO2 saturation greater than 95% on room air. jd3 18:03 CT Head Brain wo Cont In Process Unspecified. EDMS 18:16 Inserted saline lock: 20 gauge in left antecubital area, using aseptic technique. Blood jd3 collected. 19:04 Elle Jeff MD is Referral Physician. jr8 19:13 No provider procedures requiring assistance completed. IV discontinued, intact, jd3 bleeding controlled, No redness/swelling at site. Pressure dressing applied. Administered Medications: 17:52 Drug: Meclizine 25 mg Route: PO; jd3 18:50 Follow up: Response: No adverse reaction jd3 Outcome: 19:04 Discharge ordered by . jr8 19:13 Discharged to home ambulatory, with family. jd3 19:13 Condition: stable 19:13 Discharge instructions given to patient, Instructed on discharge instructions, follow up and referral plans. medication usage, Demonstrated understanding of instructions, follow-up care, medications, Prescriptions given X 2. 19:14 Patient left the ED. jd3 Signatures: Dispatcher [employer] EDChely Ang as Wenceslao Hayes PA PA jr8 Prince Pitts, RN RN jd3
[2020-09-07 20:01] VITALS: TEMP 98.5
[2020-09-07 20:03] VITALS: BP 119/80; O2SAT 97
== END 2020-09-07 19:14 | disposition home or self-care (01) ==
LOC: ER 16:57
DX: R42 Dizziness and giddiness (principal); R51.9 Headache, unspecified; F41.9 Anxiety disorder, unspecified; Z87.891 Personal history of nicotine dependence
CPT/HCPCS: 36415; 70450; 80048; 83735; 84439; 84443; 85025; 99284

== ENCOUNTER 2024-09-20 09:24 | Emergency (ER) | payer OTHER, SELFPAY ==
--- OUTSIDE RECORDS SUMMARY | 2024-09-20 09:27 | XMS REPORT | Continuity of Care Document ---
Author Name Unknown Address [address] [facility]. [address] [place] [address] [facility] thconnect Address [address] [facility] [address] [place] [address] Care Team Providers Care Immigration Associate Name Role Phone PCP, PATIENT DOES NOT HAVE A Primary Care Physic kayla Unavailable Lindsay Duque Attending Clinician [phone] LINDSAY LEI Attending Clinician Unavailable Unknown, Attending Attending Clinician Unavailab ANISHA Curiel Attending Clinician Unavailable Vielka Mejía Attending Clinician + VIELKA MONTELONGO Attending Clinician Unavail able SYD KEMP Attending Clinician Unavailable Syd Kemp MD Attending Clinician [phone] Clarice Aragon Attending Clinician [phone] CLARICE KUHN Attending Clinician Unavailable Cesar Attending Clinician Unavailable SYD KEMP Admitting Clinician Unavailable Cesar Admitting Clinician Unavailable Payers Payer Name Policy Type Policy Number Effective Date Expirati on Date Source [facility] [id number] 2022 00:00:00 [place]MEDICAID) [id number] Problems Condition Name Condition Details Condition Category Status Onset Date Resolution Date Last Treatment Date Treating Clinician Comments Source Other general counseling and advice for contracept chary management Other general counseling and advice for contracept chary management Disease Active 05-26 00:00: 00 [facility] Oral contracept ion Oral Contracept ion Problem Active 622 00:00: 00 [facility] Breech presentati on Breech Presentati on Problem Active 5-13 00:00: 00 [facility] Acute cystitis in , antepartum Acute Cystitis in , Antepartum Problem Active 4-02 00:00: 00 [facility] Proteinuri a Proteinuri a Problem Active 2-12 00:00: 00 [facility] Paresthesi a of upper limb Paresthesi a of Upper Limb Problem Active 1-04 00:00: 00 [facility] Candidiasi s of vagina Candidiasi s of Vagina Problem Active 2017-11 106 00:00: 00 [facility] Missed period Missed Period Problem Active 08-13 00:00: 00 [facility] Urine test positive Urine Test Positive Problem Active 08-13 00:00: 00 [facility] screening Screening Problem Active 2016-11 115 00:00: 00 [facility] Generalize d anxiety disorder Generalize d Anxiety Disorder Problem Active 14 00:00: 00 [facility] Vasovagal attack Vasovagal Attack Problem Active 16 00:00: 00 [facility] Over weight Over weight Disease Resolve d 05-26 00:00: 00 2024-04-30 00:00:00 2024-04-30 13:06:46 [facility] Overweight (BMI 25.0-29.9) Overweight (BMI 25.0-29.9) Disease Resolve d 6 00:00: 00 2024-04-30 00:00:00 2024-04-30 13:06:45 [facility] Supervisio n of high risk , antepartum , first trimester Supervisio n of high risk , antepartum , first trimester Disease Resolve d 02-23 00:00: 00 2022-05-26 00:00:00 2022-05-26 13:49:33 [facility] Missed menses Missed menses Disease Resolve d 02-23 00:00: 00 2022-05-26 00:00:00 2022-05-26 13:49:35 [facility] History of intrauteri ne , currently , first trimester History of intrauteri ne , currently , first trimester Disease Resolve d 02-23 00:00: 00 2022-05-26 00:00:00 2022-05-26 13:49:32 [facility] Tobacco use in , first trimester Tobacco use in , first trimester Disease Resolve d 02-23 00:00: 00 2022-05-26 00:00:00 2022-05-26 13:49:29 [facility] General counseling for prescripti on of oral contracept vicky General counseling for prescripti on of oral contracept vicky Disease Resolve d 05-05 00:00: 00 2017-02-23 00:00:00 2017-02-23 10:54:11 [facility] Yeast infection Yeast infection Disease Resolve d 05-05 00:00: 00 2017-02-23 00:00:00 2017-02-23 10:54:02 [facility] Allergies, Adverse Reactions, Alerts Allergy Name Allergy Type Status Severity Reaction(s) Onset Date Inactive Date Treating Clinician Comments Source NO KNOWN ALLERGIE S Drug Class Active [facility] Social History Social Habit Start Date Stop Date Quantity Comments Source History of tobacco use Cigarette Smoker [facility]coholic beverage intake 2024-09-18 00:00:00 2024-09-18 00:00:00 Current drinker of alcohol (finding) [facility] Tobacco use and exposure 2024-04-30 00:00:00 2024-04-30 00:00:00 Smokeless tobacco non-user [facility] History of Social function 2024-04-30 00:00:00 2024-04-30 00:00:00 [facility] Alcohol Comment 2024-04-30 00:00:00 2024-04-30 00:00:00 social [facility] Tobacco Comment 2024-04-30 00:00:00 2024-04-30 00:00:00 5 cigarettes per day [facility] Exposure to SARS-CoV-2 (event) 2022-05-16 00:00:00 2022-05-26 13:21:00 Not sure [facility] Alcohol intake 2022-05-26 00:00:00 2022-05-26 00:00:00 0 /d [facility] Sex assigned at 1990 00:00:00 1990 00:00:00 [facility] Smoking Status Start Date Stop Date Source Occasional tobacco smoker 2024-04-30 00:00:00 [facility] Ex-smoker 2022-05-26 00:00:00 2022-05-26 00:00:00 [facility] Medications Ordered Medication Name Filled Medication Name Start Date Stop Date Current Medication? Ordering Clinician Indication Dosage Frequency Signature (SIG) Comments Components Source ketorolac (TORADOL) injection 30 mg 2023-11 0 01:30: 00 09-19 13:29 :[id number] [facility] butalbital- acetaminoph en-caff 50-325-40 mg tablet 2020-11 00:00: 00 Yes [id number] 1{tbl} Take 1 tablet by mouth every 6 (six) hours as needed for Pain (scale 4-6). [facility] vit #33-iron-FA -dha (SELECT-OB + DHA) 29 mg iron-1 mg -250 mg combo pack 02-23 00:00: 00 Yes [id number] 1{packe t} Take 1 Packet by mouth daily. [facility] vit #33-iron-FA -dha (SELECT-OB + DHA) 29 mg iron-1 mg -250 mg combo pack 02-23 00:00: 00 Yes [id number] 1{packe t} Take 1 Packet by mouth daily. [facility] citalopram 10 mg tablet Take 1 tablet every day by oral route. citalopram 10 mg tablet Take 1 tablet every day by oral route. No 1 Q1D citalopram 10 mg tablet Take 1 tablet every day by oral route. [facility] Sprintec (28) 0.25 mg-35 mcg tablet Take 1 tablet every day by oral route. Sprintec (28) 0.25 mg-35 mcg tablet Take 1 tablet every day by oral route. No 1 Q1D Sprintec (28) 0.25 mg-35 mcg tablet Take 1 tablet every day by oral route. [facility] Immunizations Ordered Immunization Name Filled Immunization Name Date Status Comments Source TDAP 2014-10-18 00:00:00 Completed [facility] TDAP 2014-10-18 00:00:00 Completed [facility] TDAP 2014-10-18 00:00:00 Completed TDAP Unknown Completed [facility] Vital Signs Vital Name Observation Time Observation Value Comments S ource Systolic blood pressure 2024-09-19 00:13:00 138 mm[Hg] [facility] Diastolic blood pressure 2024-09-19 00:13:00 89 mm[Hg] [facility] Heart rate 2024-09-19 00:13:00 104 /min [facility] Body temperature 2024-09-19 00:13:00 36.56 Nidhi [facility] Respiratory rate 2024-09-19 00:13:00 16 /min [facility] Body weight 2024-09-19 00:13:00 79.833 kg [facility] BMI 2024-09-19 00:13:00 30.21 kg/m2 [facility] Oxygen saturation in Arterial blood by Pulse oximetry 2024-09-19 00:13:00 97 /min [facility] Systolic blood pressure 2024-04-30 17:29:00 136 mm[Hg] [facility] Diastolic blood pressure 2024-04-30 17:29:00 84 mm[Hg] [facility] Heart rate 2024-04-30 17:29:00 87 /min [facility] Body temperature 2024-04-30 17:29:00 36.33 Nidhi [facility] Respiratory rate 2024-04-30 17:29:00 18 /min [facility] Body height 2024-04-30 17:29:00 162.6 cm [facility] Body weight 2024-04-30 17:29:00 84.823 kg [facility] BMI 2024-04-30 17:29:00 32.10 kg/m2 [facility] BMI 2022-05-26 18:22:00 29.06 kg/m2 [facility] Systolic blood pressure 2022-05-26 18:22:00 132 mm[Hg] [facility] Diastolic blood pressure 2022-05-26 18:22:00 87 mm[Hg] [facility] Heart rate 2022-05-26 18:22:00 92 /min [facility] Body temperature 2022-05-26 18:22:00 36.72 Nidhi [facility] Respiratory rate 2022-05-26 18:22:00 18 /min [facility] Body height 2022-05-26 18:22:00 162.6 cm [facility] Body weight 2022-05-26 18:22:00 76.8 kg [facility] BP Diastolic 2020-05-18 00:00:00 78 mm[Hg] [facility] Height 2020-05-18 00:00:00 64 [in_i] [facility] BMI (Body Mass Index) 2020-05-18 00:00:00 30.6 kg/m2 [facility] BP Systolic 2020-05-18 00:00:00 127 mm[Hg] [facility] Body Weight 2020-05-18 00:00:00 178 [lb_av] [facility] BP Diastolic 2019-05-02 00:00:00 82 mm[Hg] [facility] Height 2019-05-02 00:00:00 64 [in_i] [facility] BMI (Body Mass Index) 2019-05-02 00:00:00 29.4 kg/m2 [facility] BP Systolic 2019-05-02 00:00:00 126 mm[Hg] [facility] Body Weight 2019-05-02 00:00:00 171 [lb_av] [facility] BP Diastolic 2019-04-08 00:00:00 82 mm[Hg] [facility] Height 2019-04-08 00:00:00 64 [in_i] [facility] BMI (Body Mass Index) 2019-04-08 00:00:00 32.4 kg/m2 [facility] BP Systolic 2019-04-08 00:00:00 121 mm[Hg] [facility] Body Weight 2019-04-08 00:00:00 188.7 [lb_av] [facility] BP Diastolic 2019-03-29 00:00:00 86 mm[Hg] [facility] Height 2019-03-29 00:00:00 64 [in_i] [facility] BMI (Body Mass Index) 2019-03-29 00:00:00 32.1 kg/m2 [facility] BP Systolic 2019-03-29 00:00:00 111 mm[Hg] [facility] Body Weight 2019-03-29 00:00:00 187 [lb_av] [facility] BP Diastolic 2019-03-08 00:00:00 74 mm[Hg] [facility] Height 2019-03-08 00:00:00 64 [in_i] [facility] BMI (Body Mass Index) 2019-03-08 00:00:00 32.1 kg/m2 [facility] BP Systolic 2019-03-08 00:00:00 121 mm[Hg] [facility] Body Weight 2019-03-08 00:00:00 187 [lb_av] [facility] BP Diastolic 2019 00:00:00 76 mm[Hg] [facility] Height 2019 00:00:00 64 [in_i] [facility] BMI (Body Mass Index) 2019 00:00:00 31.6 kg/m2 [facility] BP Systolic 2019 00:00:00 120 mm[Hg] [facility] Body Weight 2019 00:00:00 184.2 [lb_av] [facility] BP Diastolic 2019-01-25 00:00:00 73 mm[Hg] [facility] Height 2019-01-25 00:00:00 64 [in_i] [facility] BMI (Body Mass Index) 2019-01-25 00:00:00 30.2 kg/m2 [facility] BP Systolic 2019-01-25 00:00:00 114 mm[Hg] [facility] Body Weight 2019-01-25 00:00:00 176 [lb_av] [facility] BP Diastolic 2019-01-08 00:00:00 70 mm[Hg] [facility] Height 2019-01-08 00:00:00 64 [in_i] [facility] BMI (Body Mass Index) 2019-01-08 00:00:00 29.8 kg/m2 [facility] BP Systolic 2019-01-08 00:00:00 109 mm[Hg] [facility] Body Weight 2019-01-08 00:00:00 173.4 [lb_av] [facility] BP Diastolic 2018-11-30 00:00:00 61 mm[Hg] [facility] Height 2018-11-30 00:00:00 64 [in_i] [facility] BMI (Body Mass Index) 2018-11-30 00:00:00 29.2 kg/m2 [facility] BP Systolic 2018-11-30 00:00:00 119 mm[Hg] [facility] Body Weight 2018-11-30 00:00:00 170 [lb_av] [facility] Procedures Procedure Date / Time Performed Performing Clinician Source XR CHEST 2 VW 2024-09-19 00:52:04 Lindsay Lei [facility] US, obstetric, limited 2019-03-29 00:00:00 [facility] ULTRASOUND REPEAT 2019-01-25 00:00:00 [facility] ULTRASOUND, UTERUS REAL TIME WITH IMAGE DOC, AND MATERNAL EVAL PLUS DETAILED ANATOMIC EXAMINATION, TRANSABDOMINAL APPROACH; SINGLE OR FIRST GESTATION 2018-11-30 00:00:00 [facility] US, obstetric, limited 2018-11-02 00:00:00 [facility] Plan of Care Planned Activity Planned Date Details Comments Source Diagnostic Test Pending 2020-05-18 00:00:00 wet mount, vaginal [code = wet mount, vaginal] [facility] Diagnostic Test Pending 2020-05-18 00:00:00 CT + NG DNA, PCR, cervical [code = CT + NG DNA, PCR, cervical] [facility] Diagnostic Test Pending 2020-05-18 00:00:00 urinalysis, dipstick [code = urinalysis, dipstick] [facility] Diagnostic Test Pending 2020-05-18 00:00:00 pap, LB + reflex to HR HPV if ASC-U [code = pap, LB + reflex to HR HPV if ASC-U] [facility] Encounters Start Date/Time End Date/Time Encounter Type Admission Type Attending Clinicians Care Facility Care Department Encounter ID Source 2024-09-18 19:29:21 2024-09-18 23:59:00 Hospital Encounter Lindsay Lei [facility] [id number] [id number] [facility] 2024-09-18 18:00:00 2024-09-18 20:10:16 Outpatient R LINDSAY LEI [facility] [id number] [facility] 2024-09-18 18:00:00 2024-09-18 18:20:00 Nurse Visit Lindsay Lei, Attending [facility] [id number] [id number] [id number] [facility] 2024-04-30 12:30:00 2024-04-30 13:23:53 Outpatient R ANISHA KENNEDY [facility] [id number] [facility] 2024-04-30 12:30:00 2024-04-30 13:23:53 Office Visit Anisha Kennedy [place] C [facility] [id number] [id number] [id number] [facility] 2022-06-28 00:00:00 2022-06-28 00:00:00 Telephone Vielka Montelongo [facility] 1..840.114 [id number] 4.2.7.2.[id number] [facility] 2022-05-26 13:00:00 2022-05-26 14:09:22 Outpatient R VIELKA MONTELONGO [facility] [id number] [facility] 2022-05-26 13:00:00 2022-05-26 14:09:22 Outpatient R VIELKA MONTELONGO [facility] [id number] [facility] 2022-05-26 13:00:00 2022-05-26 14:09:22 Office Visit Vielka Montelongo [facility] 1..840.114 350.1.13.10 4.2.7.2.[id number] [facility] 2022-05-26 13:00:00 2022-05-26 13:00:00 Outpatient R VIELKA MONTELONGO [facility] [id number] [facility] 2021-11-05 23:45:00 2021-11-06 02:13:00 Emergency X SYD KEMP [facility] E[facility] [id number] [facility] 2021-11-05 23:45:00 2021-11-06 02:13:00 Emergency Yarima, [place] [facility] [id number] 350.1.13.10 [id number] [facility] 2021-10-19 16:58:29 2021-10-19 17:18:29 Urgent Care Clarice Kuhn [facility] [id number] [id number] [id number] [facility] 2021-10-19 17:00:00 2021-10-19 17:00:00 Outpatient R HATTIE CLARICE [facility] [id number] [facility] 2020-10-14 02:32:00 2020-10-14 02:32:00 Outpatient [facility]as [facility] [id number] [facility] 2020-06-15 05:09:00 2020-06-15 05:09:00 Outpatient G[facility] [id number] [facility] 2020-05-18 00:00:00 2020-05-18 00:00:00 Hammad Arias MD: [address] [place] [address] [place], [place] [address] , Ph. [phone] [facility] [id number] [facility] 2020-05-17 01:54:00 2020-05-17 01:54:00 Outpatient [facility] [id number] [facility] 2019-08-25 03:30:00 2019-08-25 03:30:00 Outpatient G[facility]as [facility] [id number] [facility] 2019-05-02 00:00:00 2019-05-02 00:00:00 Hammad Arias MD: [address] [place] [address], [address], [place] [address] , Ph. [phone] [facility] [id number] [facility] 2019-04-08 00:00:00 2019-04-08 00:00:00 Hammad Arias MD: [address], [address], [place] [address] , Ph. [phone] [facility] [id number] 0513 [facility] 2019-03-29 00:00:00 2019-03-29 00:00:00 Hammad Arias MD: [address], [address], [place] [address] , Ph. [phone] [facility] [id number] [facility] 2019-03-08 00:00:00 2019-03-08 00:00:00 Syeda Love MD: [address], [address], [place] [address] , Ph. [phone] [facility] [id number] 0412 [facility] 2019 00:00:00 2019 00:00:00 PHOEBE Leach: [address], [address], [place] [address] , Ph. [phone] [facility] [id number] 0329 [facility] 2019-01-25 00:00:00 2019-01-25 00:00:00 Hammad Arias MD: [address], [address], [place] [address] , Ph. [phone] [facility] [id number] 0301 [facility] 2019-01-08 00:00:00 2019-01-08 00:00:00 PHOEBE Leach: [address], [address], [place] [address] , Ph. [phone] [facility] [id number] 0212 [facility] 2018-11-30 00:00:00 2018-11-30 00:00:00 BENJI LeachNP: [address] [place] [address] , Ph. [phone] [facility] 0104 [facility] 2018-11-02 00:00:00 2018-11-02 00:00:00 Hammad Arias MD: [address] [place] [address] , Ph. [phone] [facility] 1207 [facility] Results Test Description Test Time Test Comments Results Resul t Comments Source XR CHEST 2 VW 2024-09-19 01:32:04 Exam: Chest (2 Views), 09/18/2024 7:29 PM. Ordering Physician: LINDSAY LEI. History: left chest pain . Technique: Two views of the chest. Comparison: None. Findings: No focal consolidation. No pneumothorax or effusion. Normal size of thecardiac silhouette. Focal kyphosis in the lower thoracic spine [facility] - [id number] 09:59:00* Test Item Value Reference Range Interpretation Comme nts Leukocytes (test code = Leukocytes) Trace Nitrite (test code = Nitrite) negative Urobilinogen (test code = Urobilinogen) .2 Protein (test code = Protein) Negative pH (test code = pH) 6.0 Blood (test code = Blood) Large Specific [place] (test code = Specific [place]) 1.015 Ketone (test code = Ketone) Negative Bilirubin (test code = Bilirubin) Negative Glucose (test code = Glucose) Negative Appearance (test code = Appearance) Clear Color (test code = Color) Yellow [facility] Differential panel - [id number] 00:00:00 * Test Item Value Reference Range Interpretation Comme nts white blood count (test code = white blood count) 9.1 K/uL 4.0-11.5 red blood count (test code = red blood count) 3.69 M/uL 3.80-5.20 L Hemoglobin [Mass/volume] in Blood (test code = 718-7) 12.0 g/dL 10.5-15.7 hematocrit (test code = hematocrit) 34.2 % 34.0-50.0 Erythrocyte mean corpuscular volume [Entitic volume] (test code = 46919-9) 92.5 fL 78-98 Erythrocyte mean corpuscular hemoglobin [Entitic mass] (test code = 40918-0) 32.4 pg 26.2-33.4 mean corpuscular HGB conc (t est code = mean corpuscular HGB conc) 35.0 g/dL 31.5-36.2 red cell distribution width (test code = red cell distribution width) 11.8 % 11.5-15.5 Platelets [#/volume] in Bloo d (test code = 42937-5) 180 K/uL 137-338 Platelet mean volume [Entiti c volume] in Blood (test code = 32069-0) 8.4 fL 8.4-11.8 Neutrophils.band form/100 leukocytes in Blood (test code = 22495-7) 53.8 % 44.4-80.1 Lymphocytes/100 leukocytes i n Body fluid (test code = 56543-2) 34.6 % 10.0-50.0 Monocytes/100 leukocytes in Blood by Automated count (test code = 5905-5) 6.7 % 3.6-12.04 Eosinophils/100 leukocytes i n Blood by Automated count (test code = 713-8) 4.3 % 0.0-5.41 Basophils/100 leukocytes in Unspecified specimen (test code = 90522-1) 0.7 % 0.0-0.79 [facility]irect [facility] screen panel - Blood 2019-04-11 00:00:00* Test Item Value Reference Range Interpretation Comme nts Rh [Type] in Blood (test cod e = 71696-3) 4+ ABO and Rh group panel - Blo od (test code = 55417-4) O positive [facility] [Presence] in Serum by [id number] 00:00:00* Test Item Value Reference Range Interpretation Comme nts Reagin Ab [Presence] in Seru m by RPR (test code = 31566-0) nonreactive nonreactive [facility] Differential panel - [id number] 00:00:00 * Test Item Value Reference Range Interpretation Comme nts white blood count (test code = white blood count) 11.4 K/uL 4.0-11.5 red blood count (test code = red blood count) 3.45 M/uL 3.80-5.20 L Hemoglobin [Mass/volume] in Blood (test code = 718-7) 10.9 g/dL 10.5-15.7 hematocrit (test code = hematocrit) 32.0 % 34.0-50.0 L Erythrocyte mean corpuscular volume [Entitic volume] (test code = 12568-1) 92.9 fL 78-98 Erythrocyte mean corpuscular hemoglobin [Entitic mass] (test code = 34741-9) 31.7 pg 26.2-33.4 mean corpuscular HGB conc (t est code = mean corpuscular HGB conc) 34.2 g/dL 31.5-36.2 red cell distribution width (test code = red cell distribution width) 12.0 % 11.5-15.5 Platelets [#/volume] in Bloo d (test code = 39822-5) 194 K/uL 137-338 Platelet mean volume [Entiti c volume] in Blood (test code = 08678-3) 10.0 fL 8.4-11.8 Neutrophils.band form/100 leukocytes in Blood (test code = 41170-4) 72.8 % 44.4-80.1 Lymphocytes/100 leukocytes i n Body fluid (test code = 48576-7) 19.8 % 10.0-50.0 Monocytes/100 leukocytes in Blood by Automated count (test code = 5905-5) 5.3 % 3.6-12.04 Eosinophils/100 leukocytes i n Blood by Automated count (test code = 713-8) 1.6 % 0.0-5.41 Basophils/100 leukocytes in Unspecified specimen (test code = 22633-2) 0.6 % 0.0-0.79 [facility] virus surface Ag [Presence] in Serum 2019-04-11 00:00:00* Test Item Value Reference Range Interpretation Comme nts .hepatitis B surface antigen (test code = .hepatitis B surface antigen) negative negative [facility] macro (dipstick) panel - [id number] 11:23:18* Test Item Value Reference Range Interpretation Comme nts Leukocytes (test code = Leukocytes) Small Nitrite (test code = Nitrite) negative Urobilinogen (test code = Urobilinogen) .2 Protein (test code = Protein) Negative pH (test code = pH) 5.5 Blood (test code = Blood) Non-Hemolyzed: Trace Specific [place] (test code = Specific [place]) 1.010 Ketone (test code = Ketone) Negative Bilirubin (test code = Bilirubin) Negative Glucose (test code = Glucose) Negative Appearance (test code = Appearance) Clear Color (test code = Color) Yellow [facility] macro (dipstick) panel - [id number] 09:41:23* Test Item Value Reference Range Interpretation Comme nts Leukocytes (test code = Leukocytes) Large Nitrite (test code = Nitrite) negative Urobilinogen (test code = Urobilinogen) .2 Protein (test code = Protein) Negative pH (test code = pH) 7.0 Blood (test code = Blood) Non-Hemolyzed: Trace Specific Saint [place] (test code = Specific [place]) 1.020 Ketone (test code = Ketone) Negative Bilirubin (test code = Bilirubin) Negative Glucose (test code = Glucose) Negative Appearance (test code = Appearance) Clear Color (test code = Color) Yellow [facility] [Presence] in Unspecified specimen by Organism specific [id number] 00:00:00* Test Item Value Reference Range Interpretation Comme nts group B streptococcus (gbs) by real-time PCR (test code = group B streptococcus (gbs) by real-time PCR) negative [facility]Neisseria gonorrhoeae DNA [Presence] in Unspecified specimen by Probe and target amplification method 2019-03-13 00:00:00* Test Item Value Reference Range Interpretation Comme nts chlamydia trachomatis by rl l-time PCR (reflex to azithromycin resistance by pyrosequencing) (test code = chlamydia trachomatis by real-time PCR (reflex to azithromycin resistance by pyrosequencing)) negative neisseria gonorrhoeae by rl l-time PCR (reflex to antibiotic resistance by molecular analysis) (test code = neisseria gonorrhoeae by real-time PCR (reflex to antibiotic resistance by molecular analysis)) negative [facility] macro (dipstick) panel - [id number] 10:32:00* Test Item Value Reference Range Interpretation Comme nts Leukocytes (test code = Leukocytes) Trace Nitrite (test code = Nitrite) negative Urobilinogen (test code = Urobilinogen) .2 Protein (test code = Protein) Negative pH (test code = pH) 7.0 Blood (test code = Blood) Negative Specific [place] (test code = Specific [place]) 1.010 Ketone (test code = Ketone) Negative Bilirubin (test code = Bilirubin) Negative Glucose (test code = Glucose) Negative Appearance (test code = Appearance) Clear Color (test code = Color) Yellow [facility] GroupUrinalysis macro (dipstick) panel - [id number] 09:23:00* Test Item Value Reference Range Interpretation Comme nts Leukocytes (test code = Leukocytes) Trace Nitrite (test code = Nitrite) negative Urobilinogen (test code = Urobilinogen) .2 Protein (test code = Protein) 30 pH (test code = pH) 7.0 Blood (test code = Blood) Hemolyzed: Trace Specific [place] (test code = Specific [place]) 1.030 Ketone (test code = Ketone) Negative Bilirubin (test code = Bilirubin) Negative Glucose (test code = Glucose) Negative Appearance (test code = Appearance) Clear Color (test code = Color) Yellow [facility] identified in Urine by [id number] 08:58:00Bacteria Ur [facility] GroupGlucose [Mass/volume] in Serum or Plasma --1 hour post dose [id number] 14:01:00* Test Item Value Reference Range Interpretation Comme nts Results (test code = Results) 147 [facility] macro (dipstick) panel - [id number] 09:42:39* Test Item Value Reference Range Interpretation Comme nts Leukocytes (test code = Leukocytes) Small Nitrite (test code = Nitrite) negative Urobilinogen (test code = Urobilinogen) .2 Protein (test code = Protein) Negative pH (test code = pH) 7.0 Blood (test code = Blood) Non-Hemolyzed: Trace Specific [place] (test code = Specific [place]) 1.020 Ketone (test code = Ketone) Negative Bilirubin (test code = Bilirubin) Negative Glucose (test code = Glucose) Negative Appearance (test code = Appearance) Clear Color (test code = Color) Yellow [facility] W Auto Differential panel - [id number] 09:40:00 * Test Item Value Reference Range Interpretation Comme nts white blood count (test code = white blood count) 9.1 K/uL 4.0-11.5 red blood count (test code = red blood count) 3.98 M/uL 3.80-5.20 Hemoglobin [Mass/volume] in Blood (test code = 718-7) 13.2 g/dL 10.5-15.7 hematocrit (test code = hematocrit) 38.8 % 34.0-50.0 Erythrocyte mean corpuscular volume [Entitic volume] (test code = 25783-8) 97.5 fL 78-98 Erythrocyte mean corpuscular hemoglobin [Entitic mass] (test code = 65211-3) 33.1 pg 26.2-33.4 mean corpuscular HGB conc (t est code = mean corpuscular HGB conc) 34.0 g/dL 31.5-36.2 red cell distribution width (test code = red cell distribution width) 11.9 % 11.5-15.5 Platelets [#/volume] in Bloo d (test code = 48087-7) 212 K/uL 137-338 Platelet mean volume [Entiti c volume] in Blood (test code = 39318-8) 8.1 fL 8.4-11.8 L Neutrophils.band form/100 leukocytes in Blood (test code = 05021-7) 64.3 % 44.4-80.1 Lymphocytes/100 leukocytes i n Body fluid (test code = 02163-7) 27.5 % 10.0-50.0 Monocytes/100 leukocytes in Blood by Automated count (test code = 5905-5) 4.2 % 3.6-12.04 Eosinophils/100 leukocytes i n Blood by Automated count (test code = 713-8) 3.4 % 0.0-5.41 Basophils/100 leukocytes in Blood by Automated count (test code = 706-2) 0.7 % 0.0-0.79 [facility] Group[facility] group antibody screen [Presence] in Serum or Plasma 2019-01-25 09:40:00* Test Item Value Reference Range Interpretation Comme nts Blood group antibody screen [Presence] in Serum or Plasma (test code = 890-4) negative [facility] GroupReagin Ab [Presence] in Serum by [id number] 09:40:00* Test Item Value Reference Range Interpretation Comme nts Reagin Ab [Presence] in Seru m by RPR (test code = 81283-2) nonreactive nonreactive [facility] GroupHIV 1+2 Ab [Presence] in [id number] 09:40:00HIV P24 AgHIV-1/2 [facility]White [facility] GroupBacteria identified in Urine by Culture 2019-01-08 11:21:00* Test Item Value Reference Range Interpretation Comme nts Bacteria identified in Urine by Culture (test code = 630-4) no growth at 48 hrs. [facility] macro (dipstick) panel - [id number] 09:20:42* Test Item Value Reference Range Interpretation Comme nts Leukocytes (test code = Leukocytes) Trace Nitrite (test code = Nitrite) negative Urobilinogen (test code = Urobilinogen) .2 Protein (test code = Protein) 30 pH (test code = pH) 6.0 Blood (test code = Blood) Small Specific [place] (test code = Specific [place]) 1.025 Ketone (test code = Ketone) Trace Bilirubin (test code = Bilirubin) Negative Glucose (test code = Glucose) Negative Appearance (test code = Appearance) Clear Color (test code = Color) Yellow [facility] macro (dipstick) panel - [id number] 10:02:59* Test Item Value Reference Range Interpretation Comme nts Leukocytes (test code = Leukocytes) Trace Nitrite (test code = Nitrite) negative Urobilinogen (test code = Urobilinogen) .2 Protein (test code = Protein) Negative pH (test code = pH) 7.0 Blood (test code = Blood) Non-Hemolyzed: Trace Specific [place] (test code = Specific [place]) 1.020 Ketone (test code = Ketone) Negative Bilirubin (test code = Bilirubin) Negative Glucose (test code = Glucose) Negative Appearance (test code = Appearance) Clear Color (test code = Color) Yellow [facility] macro (dipstick) panel - [id number] 09:28:13* Test Item Value Reference Range Interpretation Comme nts Leukocytes (test code = Leukocytes) Negative Nitrite (test code = Nitrite) negative Urobilinogen (test code = Urobilinogen) .2 Protein (test code = Protein) Negative pH (test code = pH) 7.0 Blood (test code = Blood) Hemolyzed: Trace Specific [place] (test code = Specific [place]) 1.015 Ketone (test code = Ketone) Negative Bilirubin (test code = Bilirubin) Negative Glucose (test code = Glucose) Negative Appearance (test code = Appearance) Clear Color (test code = Color) Yellow [facility]
[2024-09-20 10:39] LABS: Absolute Basophils 0.1 K/uL (0-0.5); Absolute Eosinophils 0.8 K/uL (0-0.5); Absolute Lymphocytes (CBC) 2.4 K/uL (0.7-4.9); Absolute Monocytes 0.5 K/uL (0.1-1.3); Absolute Neutrophil 3.2 K/uL (1.8-8.0); Eosinophils % 11.9 % (0-4.4); Hematocrit 42.7 % (36.0-45.0); Hemoglobin 14.5 g/dL (12.0-15.0); Lymphocytes % 33.9 % (15.3-44.8); MCH 31.8 pg (27.0-35.0); MCHC 33.8 g/dL (32.0-36.0); MCV 93.9 fL (80-100); MPV 8.4 fL (7.6-11.3); Monocytes % 7.5 % (3.3-12.3); Neutrophils % 45.7 % (41.7-73.7); Nucleated Red Blood Cells % 0.1 % (0-0); Platelets 235 thou/uL (152-406); RBC Red Blood Cell Count 4.55 M/uL (3.86-4.86); Red Cell Distribution Width 13.7 % (12.1-15.2)
[2024-09-20 10:46] LABS: Specific Gravity < 1.005 (1.005-1.030)
[2024-09-20 11:10] LABS: ALT/SGPT 45 U/L (13-56); AST/SGOT 24 U/L (15-37); Albumin 3.8 g/dL (3.4-5.0); Albumin/Globulin Ratio 0.9 (1.1-1.8); Alkaline Phosphatase 57 U/L (45-117); Anion Gap 7.8 mEq/L (5.0-15.0); BUN Blood Urea Nitrogen 12 mg/dL (7-18); Bicarbonate 26 mEq/L (21-32); Bilirubin Total 0.3 mg/dL (0.2-1.0); Globulin 4.1 g/dL (2.3-3.5); Glomerular Filtration Rate 123 ml/min (=/>90); Glucose Level 94 mg/dL (74-106); Potassium 3.8 mEq/L (3.5-5.1); Protein, Total 7.9 g/dL (6.4-8.2); Sodium Level 139 mEq/L (136-145)
[2024-09-20 11:14] LABS: Troponin High Sensitivity < 3.0 pg/mL (<58.9)
--- NOTE | 2024-09-20 11:24 | RAD REPORT ---
EXAMINATION: ONE VIEW CHEST XR CLINICAL INDICATION: Female, 34 years old.,CHEST PAIN TECHNIQUE: Frontal chest projection is submitted. Examination is limited by patient positioning and t echnique. COMPARISON: 05/21/2020 FINDINGS: The lungs are well inflated and clear. No pneumothorax or sizable effusion. The heart is normal in s ize. IMPRESSION: No acute intrathoracic abnormalities.
--- NOTE | 2024-09-20 11:56 | ER ---
Nurse's Notes [facility] Name: Irma Garcia Age: 34 yrs Sex: Female : 1990 Arrival Date: 09/20/2024 Time: 09:24 Bed 20 Private MD: Diagnosis: Chest pain, unspecified Presentation: 09/20 09:33 Chief complaint: Patient states: "I've been having chest pain since Monday and it felt aa5 like indigestion but it's not going away". Pt reports being seen at urgent care and had a chest x-ray and EKG. 09:33 Coronavirus screen: At this time, the client does not indicate any symptoms associated aa5 with coronavirus-19. Ebola Screen: Patient denies travel to an Ebola-affected area in the 21 days before illness onset. Initial Sepsis Screen: Does the patient meet any 2 criteria? No. Patient's initial sepsis screen is negative. Does the patient have a suspected source of infection? No. Patient's initial sepsis screen is negative. Risk Assessment: Do you want to hurt yourself or someone else? Patient reports no desire to harm self or others. Onset of symptoms was August 2024. 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 - Infectious Disease History:: Denies. - Social history:: Smoking status: Patient reports the use of cigarette tobacco products, 2 cigarettes a day . Screenin:14 [facility] ED Fall Risk Assessment (Adult) History of falling in the last 3 months, bp including since admission No falls in past 3 months (0 pts) Confusion or Disorientation No (0 pts) Intoxicated or Sedated No (0 pts) Impaired Gait No (0 pts) Mobility Assist Device Used No (0 pt) Altered Elimination No (0 pt) Score/Fall Risk Level 0 - 2 = Low Risk Oriented to surroundings, Maintained a safe environment, Educated pt \\T\\ family on fall prevention, incl call for assistance when getting out of bed, Assessed \\T\\ reinforced patient's understanding of fall precautions. Abuse screen: Denies threats or abuse. Denies injuries from another. Nutritional screening: No deficits noted. Tuberculosis screening: No symptoms or risk factors identified. Assessment: 12:11 General: Appears in no apparent distress. Behavior is calm, cooperative. Pain: bp Complains of pain in chest Pain does not radiate. Pain began gradually. Neuro: Level of Consciousness is awake, alert, obeys commands, Oriented to person, place, time, situation, Moves all extremities. Full function. Cardiovascular: Reports chest pain, Denies diaphoresis, fatigue, lightheadedness, nausea, palpitations, shortness of breath, syncope. Respiratory: Airway is patent Respiratory effort is even, unlabored, Respiratory pattern is regular, symmetrical. GI: No signs and/or symptoms were reported involving the gastrointestinal system. : No signs and/or symptoms were reported regarding the genitourinary system. EENT: No signs and/or symptoms were reported regarding the EENT system. Derm: No signs and/or symptoms reported regarding the dermatologic system. Musculoskeletal: No signs and/or symptoms reported regarding the musculoskeletal system. Vital Signs: 09:33 BP 138 / 91; Pulse 92; Resp 18 S; Temp 97.1(TE); Pulse Ox 97% on R/A; Weight 79.83 kg aa5 (R); Height 5 ft. 4 in. (R); 12:14 BP 121 / 79; Pulse 95; Resp 18; Temp 97.9(O); Pulse Ox 97% on R/A; Pain 4/10; bp 09:33 Body Mass Index 30.21 (79.83 kg, 162.56 cm) aa5 12:14 Pain Scale: Adult bp ED Course: 09:28 Patient arrived in ED. ra3 09:32 Elle Abdi MD is Attending Physician. sd2 09:33 Arm band placed on Patient placed in an exam room, on a stretcher. aa5 09:35 Ronen Fulton, TONIO is Primary Nurse. bp 09:45 Triage completed. aa5 10:27 Initial lab(s) drawn, by me, sent to lab. Urine collected: clean catch specimen, EKG bp done, by ED staff, reviewed by Elle Abdi MD. Inserted saline lock: 20 gauge in right forearm, using aseptic technique. Blood collected. Flushed with 10 mL NS. 10:39 XRAY Chest (1 view) In Process Unspecified. EDMS 12:15 Patient has correct armband on for positive identification. Bed in low position. Call bp light in reach. Side rails up X 1. Provided Education on: ed process, call celestin. Client placed on continuous cardiac and pulse oximetry monitoring. NIBP monitoring applied. screw machine hand on. 12:15 No provider procedures requiring assistance completed. IV discontinued, intact, bp bleeding controlled, No redness/swelling at site. Pressure dressing applied. Patient maintains SpO2 saturation greater than 95% on room air. Administered Medications: No medications were administered Medication: 12:14 VIS not applicable for this client. bp Outcome: 11:55 Discharge ordered by . jose 12:15 Discharged to home ambulatory, bp 12:15 Condition: stable 12:15 Discharge instructions given to patient, Instructed on discharge instructions, follow up and referral plans. Demonstrated understanding of instructions, follow-up care, 12:16 Patient left the ED. bp Signatures: Dispatcher [employer] EDNY Arielle Aaron, RN RN aa5 Ronen Fulton, RN RN Elle Nick MD MD sd2 Meagan Gimenez ra3
--- NOTE | 2024-09-20 11:56 | EDPHYS ---
Physician Documentation [facility] Name: Irma Garcia Age: 34 yrs Sex: Female : 1990 Arrival Date: 09/20/2024 Time: 09:24 Bed 20 Private MD: ED Physician Elle Abdi HPI: 09/20 10:05 This 34 yrs old Female presents to ER via Ambulatory with complaints of Chest Pain - sd2 x5days. 10:05 34 yo F presents with CC of CP that started 3 days ago. Reports initially "felt like a sd2 campfire under my left boob" and now has moved to the midsternal area but radiates back and forth. Denies any associated SOB, belching, vomiting, diarrhea or diaphoresis. No recent travel or leg edema. Father had a NV in his 40s. No change in pain with eating or exertion. Seen at urgent care 2 days ago with normal EKG and CXR and told to take Ibuprofen which she has been taking and made the pain more intermittent. No improvement with Tums.. 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 - Infectious Disease History:: Denies. - Social history:: Smoking status: Patient reports the use of cigarette tobacco products, 2 cigarettes a day . ROS: 10:05 Constitutional: Negative for fever, chills, and weight loss, Eyes: Negative for injury, sd2 pain, redness, and discharge, Cardiovascular: Positive for chest pain, Negative for palpitations, and edema, Respiratory: Negative for shortness of breath, cough, wheezing. Abdomen/GI: Negative for abdominal pain, nausea, vomiting, diarrhea. MS/Extremity: Negative for injury and deformity, Skin: Negative for injury, rash, and discoloration, Neuro: Negative for headache, numbness and tingling. Exam: 10:05 Constitutional: This is a well developed, well nourished patient who is awake, alert, sd2 and in no acute distress. Head/Face: Normocephalic, atraumatic. Eyes: EOMI, normal conjunctiva bilaterally Chest/axilla: Normal chest wall appearance and motion. Nontender with no deformity. Cardiovascular: Regular rate and rhythm with a normal S1 and S2. No gallops, murmurs, or rubs. 2+ distal pulses. Respiratory: Lungs have equal breath sounds bilaterally, clear to auscultation and percussion. No rales, rhonchi or wheezes noted. No increased work of breathing, no retractions or nasal flaring. Abdomen/GI: Soft, non-tender, with normal bowel sounds. No guarding or rebound. No evidence of tenderness throughout. Skin: Warm, dry with normal turgor. Normal color with no rashes, no lesions, and no evidence of cellulitis. MS/ Extremity: Pulses equal, no cyanosis. Neurovascular intact. Full, normal range of motion. Psych: Awake, alert, with orientation to person, place and time. Behavior, mood, and affect are within normal limits. 10:22 ECG was reviewed by the Attending Physician. NSR, rate 84, no STEMI criteria sd2 Vital Signs: 09:33 BP 138 / 91; Pulse 92; Resp 18 S; Temp 97.1(TE); Pulse Ox 97% on R/A; Weight 79.83 kg aa5 (R); Height 5 ft. 4 in. (R); 12:14 BP 121 / 79; Pulse 95; Resp 18; Temp 97.9(O); Pulse Ox 97% on R/A; Pain 4/10; bp 09:33 Body Mass Index 30.21 (79.83 kg, 162.56 cm) aa5 12:14 Pain Scale: Adult bp MDM: 09:35 Medical Screening Exam initiated sd2 10:05 Differential diagnosis: ACS, PE, GERD, dissection, MSK among others. Data reviewed: sd2 vital signs, nurses notes, lab test result(s), EKG, radiologic studies. Refusal of service: The patient/guardian displays adequate decision making capability and despite a detailed discussion of alternatives, benefits, risks, and consequences refuses: Medications. 11:53 HEART Score: History: Slightly Suspicious (0), ECG: Normal (0), Age: < or = 45 years sd2 (0), Risk Factors: 1 or 2 risk factors (1), Troponin: < or = 1 x Normal Limit (0), Total Score = 1. Counseling: I had a detailed discussion with the patient and/or guardian regarding the historical points, exam findings, and any diagnostic results supporting the discharge/admit diagnosis, lab results, radiology results, the need for outpatient follow up, to return to the emergency department if symptoms worsen or persist or if there are any questions or concerns that arise at home. ED course: labs and imaging reviewed. labs reassuring. EKG with no ischemic changes. CXR with no acute process. Pt declined medication for treatment in ER. States she was just told if it persisted to come to the ER by urgent care and it is uncomfortable but not painful. She is PERC negative with stable VS. She will follow up outpatient with her primary care doctor and is comfortable with plan for dc and outpatient follow up. Verbalizes understanding of dc plan and strict return precautions. . 09/20 10:05 Order name: CBC with Diff; Complete Time: 11:18 sd2 09/20 10:05 Order name: CMP; Complete Time: 11:18 sd2 09/20 10:05 Order name: Troponin High Sensitivity; Complete Time: 11:18 sd2 09/20 10:35 Order name: PREGU; Complete Time: 11:18 eb 09/20 10:05 Order name: XRAY Chest (1 view); Complete Time: 11:46 sd2 09/20 10:05 Order name: EKG - Nurse/Tech; Complete Time: 10:23 sd2 Administered Medications: No medications were administered Disposition Summary: 09/20/24 11:55 Discharge Ordered Problem: new sd2 Symptoms: have improved sd2 Condition: Stable sd2 Diagnosis - Chest pain, unspecified sd2 Followup: sd2 - With: Private Physician - When: 2 - 3 days - Reason: Recheck today's complaints, Continuance of care, Re-evaluation by your physician Discharge Instructions: - Discharge Summary Sheet sd2 - Nonspecific Chest Pain, Adult sd2 Forms: - Medication Reconciliation Form sd2 - Antibiotic Education sd2 - Prescription Opioid Use sd2 - Patient Portal Instructions sd2 - Leadership Thank You Letter sd2 Signatures: Dispatcher [employer] Arielle Chino RN RN aa5 Elle Abdi MD MD sd2 Corrections: (The following items were deleted from the chart) 10:05 10:05 Chest Single View+RAD.RAD.BRZ ordered. EDMS EDMS 10:39 10:05 TEST, SERUM+SC.LAB.BRZ ordered. EDMS EDMS
[2024-09-20 21:37] VITALS: O2SAT 97
[2024-09-20 21:38] VITALS: BP 121/79; TEMP 97.9
--- NOTE | 2024-09-25 15:00 | EKG ---
Test Date: 2024-09-20 Test Time: 10:18:44 Seafood Technology Specialist: CHRISTINE MEASUREMENT RESULTS: Intervals: Rate: 84 SD: 126 QRSD: 82 QT: 352 QTc: 415 [place]: P: 26 SD: 126 QRS: 59 T: 52 INTERPRETIVE STATEMENTS: Normal sinus rhythm Normal ECG Compared to ECG 05/21/2020 20:31:05 No significant changes Electronically Signed On 09-25-24 14:49:27 CDT by Pedro Sams
== END 2024-09-20 12:16 | disposition home or self-care (01) ==
LOC: ER 09:24
DX: R07.9 Chest pain, unspecified (principal); F41.9 Anxiety disorder, unspecified; Z72.0 Tobacco use
CPT/HCPCS: 36415; 71045; 80053; 81025; 84484; 85025; 93005; 99284